=== PATIENT | female | born 1990 | race Caucasian/White ===

== ENCOUNTER 2019-09-22 10:54 | Emergency (ER) | payer SELFPAY ==
[2019-09-22 10:58] VITALS: BP 114/78; PULSE 102; RESP 18; TEMP 36.7; O2SAT 98; BMI 25.8
--- NOTE | 2019-09-22 11:18 | ED_ITS ---
Entered by Ene Yañez, acting as scribe for Da Guthrie DO Sep 22, 2019 10:54 HPI - General Adult General: Chief complaint: General Medical Stated complaint: Swollen throat Time Seen by Provider: 09/22/19 11:18 Source: patient Mode of arrival: ambulatory Limitations: no limitations History of Present Illness: HPI narrative: 29 yo Female presents to ED with complaint of swollen lymph nodes on the left side of her neck. Pt states that it started swelling last night while she was in the ED with her daughter. Pt states that her throat, tongue and everything hurts on the left side. MD complaint: Pain and swelling on left side of her neck Onset (ago): day(s) (1) Location: face and neck Radiation: non-radiation Severity scale (1-10): 10 Quality: constant Pain Consistency: constant Relieving factors: none Exacerbating factors: none Associated symptoms: Deny chest pain, cough, dyspnea, fevers/chills, malaise, nausea, rash or vomiting Review of Systems General: Reports: 10 or more systems reviewed and unremarkable except in HPI and below Const: Denies: malaise ENMT: Reports: throat pain, painful swallowing, mouth pain and ear pain; Denies: nasal discharge or nasal congestion Card: Denies: chest pain Resp: Denies: shortness of breath GI: Denies: nausea or vomiting : Denies: flank pain, difficulty urinating, painful urination, urinary frequency or urinary urgency Skin/Breast: Denies: rash PFSH ED PFSH: Statuses (acute, chronic, etc) shown below reflect problem list status as previously entered and may not be historically accurate Medical History Anemia (Acute) Depression (Acute) Migraine headache (Acute) Surgical History History of dilatation and curettage (Acute) Social History Smoking and tobacco status: current every day smoker Physical Exam Const: COMMON NORMALS: no apparent distress GENERAL APPEARANCE: cooperative and comfortable ORIENTATION/CONSCIOUSNESS: Yes awake, Yes oriented to person, Yes oriented to place and Yes oriented to time HENMT: COMMON NORMALS: normocephalic, head/scalp atraumatic, hearing grossly normal bilaterally, external ears normal, EAC's normal, TM's normal bilaterally, nasal mucous membranes and turbinates normal, moist oral mucous membranes and oropharynx normal HEAD & SCALP: normocephalic and atraumatic NOSE: nasal mucous membranes and turbinates normal EXTERNAL EAR: Yes external ears normal EXTERNAL AUDITORY CANAL: EAC's normal TYMPANIC MEMBRANE: TM's normal bilaterally THROAT: posterior oropharynx abnormal (Bilateral) erythema and exudates Eye: COMMON NORMALS: PERRL, EOMs intact bilaterally, conjunctivae normal and no scleral icterus CONJUNCTIVA: Yes conjunctivae normal PUPIL: Yes PERRL Neck/C-Spine: COMMON NORMALS: full ROM, no lymphadenopathy, supple and no JVD Lymph: LYMPHATIC: no lymphadenopathy noted and no lymphedema noted Resp: COMMON NORMALS: normal respiratory effort, no retractions, no use of accessory muscles and clear to auscultation bilaterally AUSCULTATION: clear to auscultation bilaterally Cardio: COMMON NORMALS: no JVD, regular rate, regular rhythm and no murmurs RATE: regular rate RHYTHM: regular rhythm Extremity: COMMON NORMALS: normal to inspection, normal capillary refill, no clubbing, cyanosis or edema, no calf tenderness and no pedal edema Neuro: SENSORIUM/ORIENTATION: Yes oriented to person, Yes oriented to place and Yes oriented to time Skin: COMMON NORMALS: no rashes or lesions noted GENERAL SKIN EXAM: no rashes or lesions noted Course Vital Signs: Vital signs: Vital Signs Temperature 98.1 F 09/22/19 10:58 Pulse Rate 78 09/22/19 13:09 Respiratory Rate 18 09/22/19 13:09 Blood Pressure 121/80 09/22/19 13:09 Pulse Oximetry 97 09/22/19 13:09 [facility] - General Adult Lab Data: Labs: Lab Results 09/22/19 Range/Units 11:31 Group A Strep Rapi d Negative (Negative) Discharge Plan Discharge Patient Disposition: Home, Self-Care Clinical Impression: Pharyngitis Qualifiers: Pharyngitis/tonsillitis etiology: unspecified etiology Qualified Code(s): J02.9 - Acute pharyngitis, unspecified Condition: Stable Prescriptions: New clindamycin HCl 300 mg capsule 300 mg PO QID 7 Days Qty: 28 RF: 0 prednisone 5 mg tablets,dose pack See Rx Instructions .ROUTE .COMPLEX Qty: 21 RF: 0 Discharge Orders: Discharge Order (Routine); Ordered 09/22/19 Ordered By: Da Guthrie Referrals: Raz De La Cruz FNP [Primary Care Provider] - Discharge Diet: Advance as tolerated Discharge Activity: Increase activity as tolerated Discharge Date/Time: 09/22/19 13:10 Coding Level of Care Code ED Skein Yard Drier for Chg Fwd Exam Problem Focused The documentation recorded by the Otilio wells Carmen, accurately reflects the service I personally performed and the decisions made by Cleveland castillo Curtis L, DO Sep 22, 2019 10:54
--- NOTE | 2019-09-22 12:06 | PC.NURSE ---
Patient states she has a dental abscess on same side for year now. Throat only sore when swallowing. Pain primarily on side of neck. Palpated swollen lymph nodes on left lateral neck.
[2019-09-22 12:22] LABS: Rapid Strep A Test Negative (Negative)
[2019-09-22 13:09] VITALS: BP 121/80; PULSE 78; RESP 18; O2SAT 97
== END 2019-09-22 13:10 | disposition home or self-care (01) ==
PROVIDERS: Emergency Provider Family Medicine; Family Provider Registered Nurse; PCP Registered Nurse
DX: J02.9 Acute pharyngitis, unspecified (principal); F17.210 Nicotine dependence, cigarettes, uncomplicated
CPT/HCPCS: 87081; 87880; 96372; 99281; 99283; J2930

== ENCOUNTER → 2020-08-22 15:30 | Outpatient (BNVA) | payer SELFPAY | PROVIDERS: Family Provider Registered Nurse; PCP Registered Nurse; Visit Provider Registered Nurse | DX: J43.9 Emphysema, unspecified (principal); N99.89 Other postprocedural complications and disorders of genitourinary system; M79.89 Other specified soft tissue disorders; F17.210 Nicotine dependence, cigarettes, uncomplicated | CPT/HCPCS: 80053; 80307; 81000; 85025 ==

== ENCOUNTER → 2021-05-11 09:29 | Outpatient (BNVA) | payer SELFPAY | PROVIDERS: Family Provider Registered Nurse; PCP Registered Nurse; Visit Provider Registered Nurse | DX: F41.8 Other specified anxiety disorders (principal); J01.40 Acute pansinusitis, unspecified | CPT/HCPCS: 80307 ==

== ENCOUNTER 2022-02-06 12:29 | Outpatient (CLI) | payer BC, MEDICAID, SELFPAY ==
--- NOTE | 2022-02-06 | US_ITS ---
WS: [id number] OB ultrasound, 02/06/2022 Clinical Data: MULTIGRAVIDA IN SECOND TRIMESTER Comparison: None. Findings: There is a single intrauterine in a transverse lie. The placenta is posterior and grade 0. There is a normal amount of amnionic fluid. The heart rate is 148 beats per minute. Measurements of growth and development: BPD: 4.8 cm 20 weeks 3 days HC: 17.5 cm 20 weeks 2 days AC: 15.2 cm 20 weeks 3 days FL: 3.6 cm 21 weeks 3 days The estimated weight is 381 g or approximately 13 ounces. The estimated gestational age is 20 weeks 5 days with an WEST of approximately 06/21/2022. anatomy show a normal stomach, kidneys, bladder, cord insertion, three-vessel cord, entire spin e, four-chamber heart, lateral cerebral ventricles, cerebellum and cisterna magna. US/US OB >= 14 weeks fetus [id number] Impression: 1. Single intrauterine in a transverse lie. 2. Estimated gestational age 20 weeks 5 days with an WEST of 06/21/2022. 3. heart rate 148 beats per minute.
== END 2022-02-06 12:30 | disposition home or self-care (01) ==
LOC: RADOUTREAD 12:34
PROVIDERS: PCP Registered Nurse; Visit Provider Family Medicine
DX: Z34.82 Encounter for supervision of other normal pregnancy, second trimester (principal); Z3A.20 20 weeks gestation of pregnancy
CPT/HCPCS: 76805

== ENCOUNTER → 2022-05-11 09:15 | Outpatient (BNVA) | payer BC, MEDICAID, SELFPAY | PROVIDERS: PCP Registered Nurse; Visit Provider Registered Nurse | DX: Z20.822 Contact with and (suspected) exposure to COVID-19 (principal); K05.6 Periodontal disease, unspecified; K06.9 Disorder of gingiva and edentulous alveolar ridge, unspecified | CPT/HCPCS: 87426 ==

== ENCOUNTER 2022-05-22 18:50 | Outpatient (CLI) | payer BC, MEDICAID, SELFPAY ==
[2022-05-22 19:09] VITALS: BP 127/71; PULSE 75
[2022-05-22 19:22] VITALS: TEMP 36.3
[2022-05-22 19:25] VITALS: BMI 32.4
[2022-05-22 20:18] LABS: Specific Gravity, Urine 1.015 (1.005-1.030); Urine Appearance Clear (CLEAR); Urine Color Yellow (Yellow); pH Urine 7 (5-7)
[2022-05-22 20:19] LABS: Bilirubin Urine Neg (Negative); Blood Urine 2+ (Negative); Glucose Urine UA Norm (Normal); Ketones Urine Negative (Negative); Leukocyte Esterase Urine Negative (Negative); Nitrate Urine Negative (Negative); Protein Urine Neg (Negative); Urobilinogen Urine Norm (Negative)
[2022-05-22 20:20] LABS: Add Urine Culture? No; Amorphous Sediment Urine 3+ /hpf; WBC Urine 0-4 /hpf (0-5)
[2022-05-22 22:22] VITALS: TEMP 36.4
[2022-05-22 22:35] VITALS: TEMP 36.3
[2022-05-22 22:36] VITALS: BP 133/60; PULSE 75
[2022-05-22 22:40] VITALS: BP 133/60; PULSE 75; RESP 16; TEMP 36.4
== END 2022-05-22 22:40 | disposition home or self-care (01) ==
LOC: OPOB 18:54 → OBGYN 18:58
PROVIDERS: PCP Registered Nurse; Visit Provider Family Medicine
DX: O47.03 False labor before 37 completed weeks of gestation, third trimester (principal); Z3A.36 36 weeks gestation of pregnancy
CPT/HCPCS: 59025; 81001; 99211

== ENCOUNTER → 2022-05-24 13:32 | Outpatient (BNVA) | payer BC, MEDICAID, SELFPAY | PROVIDERS: PCP Registered Nurse; Visit Provider Nurse Practitioner Family | DX: Z20.822 Contact with and (suspected) exposure to COVID-19 (principal); J06.9 Acute upper respiratory infection, unspecified | CPT/HCPCS: 87426 ==

== ENCOUNTER 2022-06-03 09:40 | Outpatient (CLI) | payer BC, MEDICAID, SELFPAY ==
[2022-06-03] VITALS (9 sets, daily range): BP systolic 117–127; BP diastolic 64–75; PULSE 80–88; TEMP 36.1; BMI 32.2
== END 2022-06-03 12:18 | disposition home or self-care (01) ==
LOC: OPOB 09:47 → OBGYN 09:48
PROVIDERS: PCP Registered Nurse; Visit Provider Family Medicine
DX: O36.8190 Decreased fetal movements, unspecified trimester, not applicable or unspecified (principal); O46.90 Antepartum hemorrhage, unspecified, unspecified trimester; Z3A.00 Weeks of gestation of pregnancy not specified; R10.9 Unspecified abdominal pain
CPT/HCPCS: 59025; 99211

== ENCOUNTER 2022-06-05 08:51 | Inpatient (IN) | payer BC, MEDICAID, SELFPAY ==
[2022-06-05] VITALS (81 sets, daily range): BP systolic 93–161; BP diastolic 50–75; PULSE 64–103; RESP 16–18; TEMP 35.9–37.1; O2SAT 82–98; BMI 32.5
[2022-06-05] MEDS: lactated ringers 1,000 ML 999 ML IV ×2 (08:29→09:42)
[2022-06-05] MEDS: fentaNYL 50 mcg/mL INJ 2mL IVP (08:39)
[2022-06-05 08:46] LABS: Basophils # 0.1 10^3/uL (0.0-0.1); Basophils % 0.2 %; Eosinophils % 0.2 %; Hematocrit 39.5 % (37.0-47.0); Hemoglobin 13.7 g/dL (11.5-15.3); Lymphocytes # 1.9 10^3/uL (0.8-4.8); Lymphocytes % 8.2 %; Mean Corpuscular HGB Conc 34.7 g/dL (30.0-36.0); Mean Corpuscular Hemoglobin 32.8 pg (28.0-34.0); Mean Corpuscular Volume 94.5 fl (81-99); Mean Platelet Volume 11.5 fL (7.4-10.4); Monocytes # 1.5 10^3/uL (0.2-0.9); Monocytes % 6.4 %; Neutrophils # 19.76 10^3/uL (1.8-7.7); Neutrophils % 84.1 %; Nucleated Red Blood Cells % 0 %; Platelet Count 220 10^3/cmm (130-400); Red Blood Count 4.18 10^6/uL (4.1-5.3); Red Cell Distribution Width 12.7 % (12.1-15.1); White Blood Count 23.5 10^3/uL (4.0-10.0)
--- NOTE | 2022-06-05 10:04 | ANES.PREANE2 ---
Pre-Anesthetic Assessment Height/Weight: Height 1.7 m Weight 94.347 kg Temp Pulse Resp BP Pulse Ox O2 Del Method 97.5 F L 86 18 133/62 97 06/05/22 10:02 06/05/22 10:01 06/05/22 08:39 06/05/22 10:00 06/05/22 10:01 06/05/22 08:18 Preop Diagnosis: Expected Labor epidural Familial anesthetic complications: None Was Beta Brian taken within 24 hours: N/A Was Clonidine taken within 24 hours: N/A Last intake: 799 Last Intake: 08:00 Social Tobacco Exam alert, oriented x 3, clear to auscultation bilaterally and regular rate & rhythm Airway Submandibular: within normal limits Cervical ROM: within normal limits Mallampati: Class II Dentition: chipped Comments: Comments: Poor dentition History/ROS No significant history except as noted Pulmonary Chronic Obstructive Pulmonary Disease CV/HEM Anemia None reported Hepatic None reported GI None reported Metabolic None reported Musc/skel Scoliosis (Pt reported mild scoliosis) Neuropsych Depression Headaches Anesthetic Plan ASA status: 3 Anesthesia: Anesthesia Evaluation and Regional (specify below) (Labor epidural) Risk of > 500 ml blood loss (7ml/kg in children): No Medications/Allergies Home Medications Medication Instructions Recorded Confirmed Last Taken Type albuterol sulfate 90 mcg/actuation 2 puff inhalation Q6H PRN 08/22/20 05/24/22 05/21/22 20:00 Rx aerosol inhaler (ProAir HFA) shortness of breath or wheezing #1 ea [place] 1 tab PO PRN PRN Pain 05/22/22 05/24/22 05/21/22 History Allergies Allergy/AdvReac Type Severity Reaction Status Date / Time latex Allergy Mild Unknown Verified 06/05/22 07:32 citalopram [From Celexa] Allergy ALGY-Rash Verified 06/03/22 11:28 sertraline [From Zoloft] Allergy ALGY-Rash Verified 06/03/22 11:28 Current Medications Generic Name Dose Route Start Last Admin Trade Name Freq PRN Reason Stop Dose Admin Fentanyl 25 - 100 mcg 06/05/22 08:10 06/05/22 08:39 Fentanyl 50 Mcg/Ml Inj 2ml IVP 25 mcg Q1H PRN Administration SEVERE PAIN Ropivacaine 200 mg in 100 mls @ 13 mls/hr 06/05/22 08:15 06/05/22 09:42 Naropin Premix EPIDURAL 13 mls/hr .Q7H42M ERNA Administration Lactated Ringer's 1,000 mls @ 999 mls/hr 06/05/22 08:11 06/05/22 09:42 Lactated Ringers IV 999 mls/hr .Q1H1M PRN Administration See label comments PFSH Anesthesia Medical History Anemia Cigarette smoker two packs a day or less Depression Emphysema of lung Migraine headache Surgical History History of dilatation and curettage Social History Smoking and tobacco status: current every day smoker Female Reproductive History : 7 Data Anesthesia : 06/05/22 08:00 Short CBC 06/05/22 Range/Units 08:00 WBC 23.5 H (4.0-10.0) 10^3/uL Hgb 13.7 (11.5-15.3) g/dL Hct 39.5 (37.0-47.0) % MCV 94.5 (81-99) fl Plt Count 220 (130-400) 10^3/cmm Neut % (Auto) 84.1 % Neut # (Auto) 19.76 H (1.8-7.7) 10^3/uL Cardiac Studies: No Data to Display Anesthesia Procedures Date of Procedure 06/05/22 Epidural Time Out Performed: Yes Consents Signed: Procedure Consent Consent: from patient, risks and benefits reviewed and patient agrees to proceed Lumbar Level: L4-L5 Epidural position: sitting Epidural procedure: sterile prep of area, 1% lidocaine to numb the area, 18 g needle, negative for paresthesia passed, neg for paresthesia, test dose given, 1.5% xylocaine 1:200k epi (2% xylocaine and 1:200k epi), placed PCEA, no systemic response, sterile dressing applied, L.U.D. no apparent complications and 0.2% Ropiavacaine @ mls/hr (13ml/hr) Additional Comments: VITALY 7cm
[2022-06-05] MEDS: ondansetron 2 mg/ML SDV 2 mL 4 MG IVP (11:44)
[2022-06-05] MEDS: dextrose 5%-lactated ringers 1,000 ML 125 ML IV (11:45)
--- NOTE | 2022-06-05 14:36 | PC.NURSE ---
blood pressure taken at 1249 read 161/63, cuff had slipped down on pt elbow and was not an accurate reading. cuff adjusted and retaken, reading 122/56.
[2022-06-05] MEDS: oxytocin 30 UNIT/500 ML BAG 600 UNIT IV (16:35)
--- NOTE | 2022-06-05 16:49 | PM.OPHPUD ---
Labor & Delivery H&P Update Date of Procedure: June 05, 2022 Date H&P Performed: 05/31/22 Changes to previous documentation: The patient is 4 cm dilated and having contractions every 4 minutes Admission Diagnosis: 32-year-old 7 para 4 at 38 weeks admitted gestational age presenting in active labor Planned procedure: Spontaneous vaginal delivery Other information: The patient is a 32-year-old female who has been to the hospital multiple times in the last several days with contractions, abdominal pain, and fear to rupture membranes. Her has been remarkable for having hepatitis C. Otherwise her labs have been unremarkable. She is HPV positive. Her blood type is a positive. She is antibody negative. Her GBS status is negative. She was diagnosed with COVID early last week. She continues to have a cough. Related Problem List Diagnoses (1) 38 weeks gestation of : (2) Hepatitis C test positive: A&P Assessment and plan (1) 38 weeks gestation of : The patient presented in active labor. An epidural was placed. Status: Acute (2) Hepatitis C test positive: No intervention while in the hospital. Status: Acute
[2022-06-05] MEDS: acetaminophen 325 mg Tablet 650 MG PO (17:02)
--- NOTE | 2022-06-05 17:16 | P.PCNOB_ITS ---
Delivery Note: Date of delivery: June 05, 2022 Pre-delivery diagnoses: 32-year-old 7 para 4 at 38 weeks estimated gestational age presenting to the hospital in active labor Post-delivery diagnoses: Status post spontaneous vaginal delivery Procedure: Spontaneous vaginal delivery Delivering Physician: Pedro Carmona Estimated blood loss (mL): 50 Pre-Delivery Course: The patient presented to the hospital in active labor. A n epidural was placed. An amniotomy was performed. The patient progressed to complete without difficulty. Delivery: DELIVERY: The patient progressed to complete without difficulty. She delivered a female with a weight of 6 pounds 5 ounces with Apgars of 9, 10. The baby was delivered from the ARI position and placed on the mother's abdomen. The cord was then clamped and cut. There was a nuchal cord x1 which was easily reduced prior just after delivering the head.. There was no meconium. The placenta and 3 vessel cord were delivered intact shortly thereafter. The perineum and vaginal vault were carefully examined. No lacerations were noted. Both the mother and the baby were in stable condition. Post-Delivery Status: Good A&P Assessment and plan (1) Spontaneous vaginal delivery: I anticipate routine care. (2) Hepatitis C test positive: (3) 38 weeks gestation of : Coding Level of Care Code Acute Lawn Care Specialist for Chg Fwd Diagnoses Spontaneous vaginal delivery O80 Hepatitis C test positive B19.20 38 weeks gestation of Z3A.38
[2022-06-05] MEDS: docusate sodium 100 mg Capsule PO (18:06)
[2022-06-05] MEDS: HYDROcodone-acetaminophen 5-325 mg Tablet PO (18:06)
--- NOTE | 2022-06-05 18:30 | PC.NURSE ---
pt up to bathroom without difficulty. pt not able to void. ling care performed by pt. pad and gown changed. pt ambulated back to bed, instructed to call for assistance next time she gets up to bathroom.
[2022-06-05] MEDS: ibuprofen 800 mg tablet PO (20:57)
[2022-06-06] VITALS (7 sets, daily range): BP systolic 97–130; BP diastolic 52–80; PULSE 50–73; RESP 15–18; TEMP 36–36.8
[2022-06-06] MEDS: HYDROcodone-acetaminophen 5-325 mg Tablet PO ×3 (00:23→14:01)
[2022-06-06 05:45] LABS: Hematocrit 33.7 % (37.0-47.0); Hemoglobin 11.5 g/dL (11.5-15.3); Mean Corpuscular HGB Conc 34.1 g/dL (30.0-36.0); Mean Corpuscular Hemoglobin 32.6 pg (28.0-34.0); Mean Corpuscular Volume 95.5 fl (81-99); Mean Platelet Volume 11.1 fL (7.4-10.4); Platelet Count 178 10^3/cmm (130-400); Red Blood Count 3.53 10^6/uL (4.1-5.3); Red Cell Distribution Width 12.9 % (12.1-15.1)
--- NOTE | 2022-06-06 06:46 | PM.OBGYDC ---
Discharge Providers FILEMAKER DEVELOPER Date of Admission: 06/05/22 16:12 Date of Discharge: 06/06/22 Attending Provider at Admission: Pedro Carmona MD Attending Provider at Discharge: Pedro Carmona MD Primary Care Provider: KENA Vang Diagnoses at Discharge Discharge Diagnosis (1) Spontaneous vaginal delivery: Status: Acute (2) Hepatitis C test positive: Status: Acute (3) 38 weeks gestation of : Status: Acute Reason for Visit Reason for Visit: possible srom, contractions Hospital Course Hospital Course The patient presented to the hospital in active labor. An epidural was placed. An amniotomy was performed. She progressed to complete and had an unremarkable delivery of a healthy-appearing term infant. Her course has been relatively unremarkable. Her bleeding has been within normal limits. Her pain has been reasonably well controlled. She has complained of a fair amount of cramping. Otherwise there have been no concerns. Information Peripartum Data: Infant Delivery Method: Vaginal Physical Exam Narrative: The patient is alert. She appears comfortable. Her heart has a regular rate and rhythm with no murmurs appreciated. Lungs are clear to auscultation bilaterally. Her fundus is firm and below the umbilicus. Urinary Catheter Management: Dailey Latex Free: Cath Placed During This Visit: yes Urinary Catheter Date of Insertion: 06/05/22 Urinary Catheter Time of Insertion: 10:28 Discharge Data Studies Completed and Pending Laboratory Results WBC 16.0 10^3/uL (4.0-10.0) H 06/06/22 05:35 RBC 3.53 10^6/uL (4.1-5.3) L 06/06/22 05:35 Hgb 11.5 g/dL (11.5-15.3) 06/06/22 05:35 Hct 33.7 % (37.0-47.0) L 06/06/22 05:35 MCV 95.5 fl (81-99) 06/06/22 05:35 MCH 32.6 pg (28.0-34.0) 06/06/22 05:35 MCHC 34.1 g/dL (30.0-36.0) 06/06/22 05:35 RDW 12.9 % (12.1-15.1) 06/06/22 05:35 Plt Count 178 10^3/cmm (130-400) 06/06/22 05:35 MPV 11.1 fL (7.4-10.4) H 06/06/22 05:35 Neut % (Auto) 84.1 % 06/05/22 08:00 Lymph % (Auto) 8.2 % 06/05/22 08:00 [place] % (Auto) 6.4 % 06/05/22 08:00 Eos % (Auto) 0.2 % 06/05/22 08:00 Baso % (Auto) 0.2 % 06/05/22 08:00 Neut # (Auto) 19.76 10^3/uL (1.8-7.7) H 06/05/22 08:00 Lymph # (Auto) 1.9 10^3/uL (0.8-4.8) 06/05/22 08:00 [place] # (Auto) 1.5 10^3/uL (0.2-0.9) H 06/05/22 08:00 Eos # (Auto) 0.0 10^3/uL (0.0-0.8) 06/05/22 08:00 Baso # (Auto) 0.1 10^3/uL (0.0-0.1) 06/05/22 08:00 Nucleated RBC % (auto) 0 % 06/05/22 08:00 Nucleated RBCs # 0.0 /100WBC 06/05/22 08:00 Vitals Last Vital Signs Temp 98.7 F 06/05/22 18:42 Pulse 50 L 06/06/22 05:32 Resp 16 06/05/22 18:42 BP 130/73 06/06/22 05:32 Pulse Ox 98 06/05/22 10:31 O2 Del Method 06/05/22 08:18 Discharge Plan Discharge Patient Disposition: Home Condition: Stable Prescriptions: New ibuprofen 800 mg Tablet 800 mg PO TID Qty: 45 0RF Continued albuterol sulfate [ProAir HFA] 90 mcg/actuation HFA aerosol inhaler 2 puff inhalation Q6H PRN (Reason: shortness of breath or wheezing) Qty: 1 0RF Discontinued [place] 1 tab PO PRN PRN (Reason: Pain) Discharge Orders: Discharge Order (Routine); Ordered 06/06/22 Ordered By: Pedro Carmona Referrals: Pedro Carmona MD [Physician] - 6 Weeks Discharge Diet: Usual diet Discharge Activity: Limit activity as instructed Patient Instructions: Opioid Safety Discharge Attestations FILEMAKER DEVELOPER Time Spent in Discharge Care*: less than 30 min Coding Level of Care Code Acute Boomboat Operator for Chg Fwd Diagnoses Spontaneous vaginal delivery O80 Hepatitis C test positive B19.20 38 weeks gestation of Z3A.38
[2022-06-06] MEDS: ibuprofen 800 mg tablet PO ×2 (07:27→14:02)
[2022-06-06] MEDS: prenatal vitamin Capsule 1 CAP PO (07:28)
--- NOTE | 2022-06-06 10:07 | ANE.PACU2 ---
Inpatient post-anesthesia follow up: Airway intact: Yes Vital signs: Temperature 96.8 F Pulse Rate 67 Respiratory Rate 16 Blood Pressure 115/53 Pulse Oximetry 98 Oxygen Delivery Me thod Room Air Oxygen Flow Rate Fraction of Inspir ed Oxygen Hydration adequate: Yes Nausea and vomiting: No Pain level: 2 Mental status: Baseline
== END 2022-06-06 18:00 | disposition home or self-care (01) | DRG 806 ==
LOC: OPOB 14:28 → OBGYN 14:28
PROVIDERS: Admitting Provider Family Medicine; PCP Registered Nurse; Visit Provider Family Medicine
DX: O99.334 Smoking (tobacco) complicating childbirth (principal); O98.42 Viral hepatitis complicating childbirth; Z37.0 Single live birth; B19.20 Unspecified viral hepatitis C without hepatic coma; O69.2XX0 Labor and delivery complicated by other cord entanglement, with compression, not applicable or unspecified; Z3A.38 38 weeks gestation of pregnancy; Z88.8 Allergy status to other drugs, medicaments and biological substances; Z91.040 Latex allergy status; O75.89 Other specified complications of labor and delivery; J45.909 Unspecified asthma, uncomplicated
CPT/HCPCS: 12345; 36415; 51702; 59409; 83986; 85025; 85027; G0378; J2405; J2795; J3010

== ENCOUNTER 2022-06-14 06:15 | Emergency (ER) | payer BC, MEDICAID, SELFPAY ==
[2022-06-14 06:20] VITALS: BP 182/96; PULSE 63; RESP 16; TEMP 36.4; O2SAT 96; BMI 28.1
[2022-06-14 06:24] VITALS: PULSE 63; RESP 18; O2SAT 96
--- NOTE | 2022-06-14 06:25 | W.ED.DENTAL ---
HPI - Dental/Oral General: Chief complaint: Dental/Oral Stated complaint: Right Side face swollen Time Seen by Provider: 06/14/22 06:17 Source: patient Mode of arrival: ambulatory History of Present Illness: 32-year-old female presents emergency room complaining of right tooth pain emanating from the jaw. No difficulty swallowing or speaking. Has been using ibuprofen although still has some mild low back pain recently had an epidural for vaginal delivery denies headache. MD Complaint: tooth pain Onset (ago): day(s) Duration: constant Severity: moderate Relieving factors: nothing Exacerbating factors: nothing Context: history of dental caries Associated symptoms: Reports gum swelling; Denies ear or mastoid pain, fever(s), odynophagia, sore throat or tongue swelling Treatment prior to arrival: other (OTC NSAIDs) Review of Systems Const: Denies: fever(s) or chills ENMT: Reports: mouth pain and dental pain; Denies: throat pain, uvular edema, odynophagia, hoarseness or ear or mastoid pain Card: Denies: chest pain, edema, dyspnea on exertion or orthopnea Resp: Denies: dyspnea, productive cough or non-productive cough GI: Denies: abdominal pain, nausea, vomiting, hematemesis, coffee ground emesis, diarrhea, constipation, bloating, hematochezia or melena : Denies: flank pain, difficulty voiding, dysuria, urinary frequency or urinary urgency Musc: Reports: back pain; Denies: extremity pain Skin/Breast: Denies: rash or pruritus All/Imm: Denies: tongue swelling PFSH ED PFSH: Medical History Anemia Cigarette smoker two packs a day or less Depression Emphysema of lung Migraine headache Surgical History History of dilatation and curettage Social History Smoking and tobacco status: current every day smoker Physical Exam Const: COMMON NORMALS: no acute distress GENERAL APPEARANCE: cooperative and comfortable ORIENTATION/CONSCIOUSNESS: Yes awake, Yes oriented to person, Yes oriented to place and Yes oriented to time HENMT: COMMON NORMALS: normocephalic, atraumatic, hearing grossly normal bilaterally, external ears normal, EAC's normal, TM's normal bilaterally, Normal nasal mucous membranes and turbinates present, moist oral mucous membranes and oropharynx normal HEAD & SCALP: normocephalic and atraumatic NOSE: Normal nasal mucous membranes and turbinates present EXTERNAL EAR: Yes external ears normal EXTERNAL AUDITORY CANAL: EAC's normal TYMPANIC MEMBRANE: TM's normal bilaterally THROAT: no uvular edema OTHER: Dental caries mild swelling of the gumline on the right mandible Neck/C-Spine: COMMON NORMALS: full ROM, no lymphadenopathy and supple Lymph: LYMPHATIC: no lymphadenopathy noted and no lymphedema noted Resp: COMMON NORMALS: normal respiratory effort, No retractions, No use of accessory muscles and clear to auscultation bilaterally AUSCULTATION: clear to auscultation bilaterally Cardio: COMMON NORMALS: regular rate, regular rhythm and No murmurs present (Cardio) RATE: regular rate RHYTHM: regular rhythm Extremity: COMMON NORMALS: normal to inspection, capillary refill normal, no clubbing, cyanosis or edema, no calf tenderness and no pedal edema Neuro: SENSORIUM/ORIENTATION: Yes oriented to person, Yes oriented to place and Yes oriented to time Skin: COMMON NORMALS: no rashes or lesions noted GENERAL SKIN EXAM: no rashes or lesions noted Course Vital Signs: Vital signs: Vital Signs Temperature 97.5 F L 06/14/22 06:20 Pulse Rate 63 06/14/22 06:33 Respiratory Rate 18 06/14/22 06:33 Blood Pressure 140/97 06/14/22 06:33 Pulse Oximetry 96 06/14/22 06:33 Oxygen Delivery Me thod 06/14/22 06:24 MDM - Dental/Oral Medical Decision Making Patient started on Augmentin 875 twice daily for 10 days also given diclofenac to use as needed and hydrocodone. Recommend follow-up with dentist as soon as able. Medical Records I reviewed the patient's medical records. Discharge Plan Discharge Patient Disposition: Home Clinical Impression: Dental abscess, Dental caries Condition: Stable Prescriptions: New diclofenac sodium 75 mg tablet,delayed release (DR/EC) 75 mg PO Q12H PRN (Reason: pain) Qty: 20 0RF Discontinued ibuprofen 800 mg Tablet 800 mg PO TID Qty: 45 0RF No Action albuterol sulfate [ProAir HFA] 90 mcg/actuation HFA aerosol inhaler 2 puff inhalation Q6H PRN (Reason: shortness of breath or wheezing) Qty: 1 0RF bupropion HCl [Wellbutrin SR] 100 mg tablet sustained-release 12 hr 100 mg PO QAM 30 Days Qty: 30 0RF nicotine 21-14-7 mg/24 hr patch, TD daily, sequential See Rx Instructions transdermal .COMPLEX Qty: 56 0RF Rx Instructions: apply 1-21 mg NICOTINE PATCH daily for 28 days; follow with 1-14 mg PATCH daily for 14 days, then 1-7mg PATCH daily for 14 days transdermal Discharge Orders: Discharge ED (Routine); Ordered 06/14/22 Ordered By: Da Guthrie Referrals: Raz De La Cruz FNP [Primary Care Provider] - Discharge Diet: Soft Mechanical Discharge Activity: Increase activity as tolerated Patient Instructions: Opioid Safety, Pain Management Activity Restrictions/Additional Instructions: Follow-up with dentist as soon as you are able. Coding Level of Care Code ED Millinery Teacher for Johnnie Condon
[2022-06-14 06:33] VITALS: BP 140/97; PULSE 63; RESP 18; O2SAT 96
[2022-06-14] MEDS: ketorolac 30 mg/mL INJ 60 MG IM (06:43)
[2022-06-14] MEDS: HYDROcodone-acetaminophen 5-325 mg Tablet 1 TAB PO (06:43)
== END 2022-06-14 06:44 | disposition home or self-care (01) ==
PROVIDERS: Emergency Provider Family Medicine; PCP Registered Nurse
DX: K04.7 Periapical abscess without sinus (principal); K02.9 Dental caries, unspecified; J43.9 Emphysema, unspecified; F17.210 Nicotine dependence, cigarettes, uncomplicated
CPT/HCPCS: 96372; 99284; J1885

== ENCOUNTER 2024-06-26 19:12 | Inpatient (IN) | payer SELFPAY ==
[2024-06-26] VITALS (27 sets, daily range): BP systolic 99–120; BP diastolic 50–74; PULSE 51–83; RESP 3–29; TEMP 36.6–37.2; O2SAT 96–99; BMI 23.5; BMI 25.7
--- NOTE | 2024-06-26 19:19 | XRR_ITS ---
PROCEDURE INFORMATION: Exam: XR Chest Exam date and time: 06/26/2024 7:50 PM Age: 34 years old Clinical indication: Other: Drug overdose; Patient HX: EMS arrival for acetaminophen overdose. History of emphysema. TECHNIQUE: Imaging protocol: Radiologic exam of the chest. Views: 1 view. COMPARISON: No relevant prior studies available. FINDINGS: Lungs: Clear, symmetrically inflated lungs. Pleural spaces: No pleural effusion. No pneumothorax. Heart/Mediastinum: Cardiac silhouette is normal in size for technique. Bones/joints: Age appropriate. XR/XR chest 1V portable [id number] IMPRESSION: No acute cardiopulmonary abnormality.
--- NOTE | 2024-06-26 19:23 | ECG_ITS ---
[employer] Test Date: 2024-06-26 Pat Name: Pina Almonte Department: Room: Gender: Female Certified Executive Chef: : 1990 Requested By: Alirio Wagner Order Number: [id number] Alvin MD: KODAK RAI Measurements Intervals [place] Rate: 52 P: 69 TN: 141 QRS: 84 QRSD: 97 T: 73 QT: 441 QTc: 410 Interpretive Statements SINUS BRADYCARDIA POSSIBLE RIGHT VENTRICULAR CONDUCTION DELAY [RSR (QR) IN V1/V2] POSSIBLE ANTERIOR MYOCARDIAL INFARCTION , OF INDETERMINATE AGE [30 ms Q WAVE IN V3/V4, OR R < 0.2 mV IN V4] No previous ECG available for comparison Electronically Signed On 06-27-2024 18:08:39 CDT by KODAK RAI [email or web address]
--- NOTE | 2024-06-26 19:23 | W.ED.OVERDOS ---
HPI - Overdose General: Chief Complaint: Overdose Stated Complaint: OD Time Seen by Provider: 06/26/24 19:16 Source: patient and EMS Mode of arrival: EMS Limitations: no limitations History of Present Illness: Patient was transported to emergency department via EMS. Patient states that approximately 5 15-5 30 this evening she took a handful of Tylenol. They present with the patient a pill of acetaminophen 500 mg caplets which she still has a significant amount of pills left in the bottle. Estimation is somewhere around 25 to 35 pills. Patient states that she has not been feeling well she did saw her therapist today who scheduled to see her psychiatrist next week but felt overwhelmed by a lot of her emotional state and decided to take the Tylenol. She previously had a suicide attempt years ago. She denies any coingestions of any other substances to include street drugs alcohol etc. She is taking her usual prescribed medications today. She complains of nausea currently. Time: 17:20 Intent: suicide attempt Associated symptoms: depression Treatments Prior to Arrival: IV fluids Related Data Home Medications Medication Instructions Recorded Confirmed lisdexamfetamine 30 mg capsule 30 mg PO DAILY 07/03/23 07/03/23 (Vyvanse) cetirizine 10 mg capsule (Zyrtec) 10 mg PO DAILY PRN 04/09/24 04/09/24 famotidine 20 mg tablet (Pepcid) 20 mg PO DAILY 04/09/24 04/09/24 Previous Rx's Medication Instructions Recorded vilazodone 10 mg tablet (Viibryd) 10 mg PO DAILY 30 days #30 tabs 07/03/23 prednisone 20 mg tablet 20 mg PO DAILY 7 days #7 tabs 04/09/24 permethrin 5 % topical cream 1 applic topical Q14D 2 doses #60 04/10/24 (Elimite) grams Allergies Allergy/AdvReac Type Severity Reaction Status Date / Time latex Allergy Mild Unknown Verified 04/09/24 15:47 citalopram [From Celexa] Allergy ALGY-Rash Verified 04/09/24 15:47 sertraline [From Zoloft] Allergy ALGY-Rash Verified 04/09/24 15:47 Review of Systems Const: Denies: fever(s) or chills ENMT: Denies: throat pain, odynophagia, nasal congestion or nasal obstruction Card: Denies: chest pain, irregular heart rhythm, syncope or pre-syncope Resp: Denies: dyspnea, productive cough or non-productive cough GI: Reports: nausea; Denies: vomiting : Denies: flank pain, difficulty voiding or dysuria Musc: Denies: neck pain, back pain or extremity pain Skin/Breast: Denies: rash Neuro: Denies: numbness in extremities or weakness in extremities Psych: Reports: depression and suicidal ideation; Denies: visual hallucinations, auditory hallucinations or homicidal ideation PFSH ED PFSH: Medical History Psychiatric care Cigarette smoker two packs a day or less Emphysema of lung Depression Anemia Migraine headache Surgical History (Reviewed 06/26/24 @ 19: by Alirio Wagner DO) History of dilatation and curettage Social History (Reviewed 06/26/24 @ 19: by Alirio Wagner DO) Smoking and tobacco/nicotine status: current every day tobacco/nicotine user Alcohol intake: never Substance/Drug Use: never Adopted: No Caregiver/support person: No Lives independently: No Household members: significant other Current occupational status: employed Sexually active: Yes Do you think of yourself as: Lesbian/Donovan/Homosexual Current gender identity: Female Physical Exam Narrative: EXAM NARRATIVE: The patient is alert answers questions in a somewhat monotonous depressed affect and tone. Const: COMMON NORMALS: average body habitus and alert ORIENTATION/CONSCIOUSNESS: Yes awake, Yes oriented to person and Yes oriented to place HENMT: COMMON NORMALS: normocephalic, Normal nasal mucous membranes and turbinates present, moist oral mucous membranes and oropharynx normal HEAD & SCALP: normocephalic FACE & SINUS: normal facial exam NOSE: Normal nasal mucous membranes and turbinates present TEETH & GINGIVA: Yes caries and Yes poor dentition Eye: COMMON NORMALS: Equal, round and reactive pupils present, EOMs intact bilaterally and conjunctivae normal CONJUNCTIVA: Yes conjunctivae normal PUPIL: Yes Equal, round and reactive pupils present Neck/C-Spine: COMMON NORMALS: full ROM, no lymphadenopathy and No carotid bruits Chest: COMMONS NORMALS: normal inspection of the chest and normal palpation of entire chest wall Resp: COMMON NORMALS: normal respiratory effort, No use of accessory muscles and clear to auscultation bilaterally AUSCULTATION: clear to auscultation bilaterally Cardio: COMMON NORMALS: regular rate, regular rhythm, No murmurs present (Cardio) and Peripheral pulses 2+ throughout RATE: regular rate RHYTHM: regular rhythm PERIPHERAL PULSES: Peripheral pulses 2+ throughout GI: COMMON NORMALS: Normal to inspection, nondistended, normoactive bowel sounds present, Soft to palpation and non-tender PALPATION: Yes Soft to palpation : COMMON NORMALS: Yes no CVA tenderness BLADDER/KIDNEY EXAM: Yes no CVA tenderness Back/Pelvis: COMMON NORMALS: no CVA tenderness, thoracic and lumbar spine normal to inspection and no thoracic nor lumbar tenderness Extremity: COMMON NORMALS: normal to inspection, full ROM, capillary refill normal and no calf tenderness Neuro: COMMON NORMALS: moves all extremities, no focal motor deficits and no sensory deficits noted SENSORIUM/ORIENTATION: Yes alert, Yes oriented to person and Yes oriented to place CRANIAL NERVES: Yes CN normal except as noted Psych: COMMON NORMALS: Normal thought process present and cooperative ATTITUDE: Yes Withdrawn affect present ACTIVITY/MOTOR BEHAVIOR: Yes Avoids eye contact (attititude/behavior) SPEECH: Yes soft MOOD & AFFECT: Yes depressed mood, Yes tearful and Yes Flat affect present THOUGHT PROCESS: Normal thought process present THOUGHT CONTENT: Yes Suicidality present INSIGHT: Fair insight present (Psych) JUDGEMENT: Fair judgement present (Psych) Skin: COMMON NORMALS: no rashes or lesions noted, no wounds and turgor normal GENERAL SKIN EXAM: no rashes or lesions noted and turgor normal Course Reevaluation(s): Reevaluation #1: Patient's heart rate remained stable and remainder of her vital signs are stable she is receiving IV fluids and has nausea for control of symptoms. Her initial acetaminophen level is under an 87 mg percent which while not prompting treatment at this time gives pause that her 4-hour level will be elevated. We will wait on the 4-hour level before making a decision on to initiate NAC. Time: 20:29 Reevaluation #2: 4-hour acetaminophen level is 191+ which is greater than 150 mg percent treatment line will initiate NAC and plan on ICU admission Time: 21:42 Consultations: Consultation #1: Discussed with Dr. Spence attending hospitalist who will admit the patient to the ICU. Time: 22:20 Consultation #2: Discussed with Dr. Fitch attending psychiatrist to consult on the patient in the ICU. Time: 22:20 Vital Signs: Vital signs: Vital Signs Temperature 97.9 F 06/26/24 19:14 Pulse Rate 68 06/26/24 21:40 Respiratory Rate 21 H 06/26/24 21:40 Blood Pressure 105/50 06/26/24 21:40 Pulse Oximetry 96 06/26/24 21:40 Oxygen Delivery Me thod Room Air 06/26/24 19:59 MDM - Overdose Medical Decision Making This patient was transported from her home by EMS after they were notified that the patient had taken a substantial overdose on acetaminophen as noted in the HPI. The patient had been depressed and admitted to taking them intentionally and plan to harm herself. Initial workup focused on acetaminophen ingestion as well as other potential Co. ingestants. The initial random acetaminophen level is noted to be elevated but not valid for treatment initiation and a 4-hour level returned which was greater than 150 mg percent minimum for treatment using the nomogram. N-acetylcysteine will be initiated and the patient will be admitted to the ICU and will need psychiatric consultation as well. Her initial transaminases are normal, there is no evidence of other coingestants, and her cardiac rhythm and EKG remain reassuring. Differential Diagnosis Likely acetaminophen overdose Lab Data I reviewed the patient's lab results. 06/26/24 19:33 06/26/24 19:33 Radiology Impressions Chest X-Ray 06/26/24 19:19 IMPRESSION: No acute cardiopulmonary abnormality. Laboratory Results WBC 10.01 10^3/uL (3.29-11.43) 06/26/24 19:33 RBC 3.72 10^6/uL (3.85-5.65) L 06/26/24 19:33 Hgb 12.00 g/dL (11.27-16.99) 06/26/24 19:33 Hct 34.6 % (36-47) L 06/26/24 19:33 MCV 93.0 fl (85-98) 06/26/24 19:33 MCH 32.3 pg (27-33) 06/26/24 19:33 MCHC 34.7 g/dL (30-55) 06/26/24 19:33 RDW 12.8 % (12.1-15.1) 06/26/24 19:33 Plt Count 238 10^3/cmm (157-399) 06/26/24 19:33 MPV 10.3 fL (7.4-10.4) 06/26/24 19:33 Neut % (Auto) 56.9 % 06/26/24 19:33 Lymph % (Auto) 31.3 % 06/26/24 19:33 [place] % (Auto) 9.3 % 06/26/24 19:33 Eos % (Auto) 1.5 % 06/26/24 19:33 Baso % (Auto) 0.7 % 06/26/24 19: Neut # (Auto) 5.70 10^3/uL (1.8-7.7) 06/26/24 19:33 Lymph # (Auto) 3.1 10^3/uL (0.8-4.8) 06/26/24 19:33 [place] # (Auto) 0.9 10^3/uL (0.2-0.9) 06/26/24 19:33 Eos # (Auto) 0.2 10^3/uL (0.0-0.8) 06/26/24 19:33 Baso # (Auto) 0.1 10^3/uL (0.0-0.1) 06/26/24 19:33 Nucleated RBC % (auto) 0 % 06/26/24 19: Nucleated RBCs # 0.0 /100WBC 06/26/24 19:33 PT 12.90 SECONDS (12.1-14.9) 06/26/24 19:33 INR 0.94 (0.8-1.2) 06/26/24 19:33 Specimen Type Arterial 06/26/24 19:40 Sample Site Radial, right 06/26/24 19:40 ABG pH 7.45 (7.35-7.45) 06/26/24 19:40 ABG pCO2 31.7 mmHg (35-45) L 06/26/24 19:40 ABG pO2 101.0 mmHg (80.0-100.0) H 06/26/24 19:40 ABG PO2/FiO2 Ratio 480 06/26/24 19:40 ABG HCO3 22.0 mmol/L (22-26) 06/26/24 19:40 ABG Base Excess -1.2 mmol/L (-2.0-2.0) 06/26/24 19:40 Ramsey Test Pos 06/26/24 19:40 Hematocrit 40.2 % (37-47) 06/26/24 19:40 Hgb O2 Saturation 93.3 % (95-100) L 06/26/24 19:40 Carboxyhemoglobin 5.2 %THgb (0.4-20.1) 06/26/24 19:40 Methemoglobin 0.4 % (0.4-1.5) 06/26/24 19:40 Total Hemoglobin 13.1 g/dL (12-16) 06/26/24 19:40 O2 Delivery Device None 06/26/24 19:40 FiO2 21.0 % 06/26/24 19:40 Optical Effects Line Up Person ID [place] 06/26/24 19:40 Sodium 139 mmol/L (136-145) 06/26/24 19:33 Potassium 4.2 mmol/L (3.5-5.1) 06/26/24 19:33 Chloride 106 mmol/L (98-107) 06/26/24 19:33 Carbon Dioxide 24 mmol/L (22-29) 06/26/24 19:33 Anion Gap 13.2 (5-19) 06/26/24 19:33 BUN 16 mg/dL (6-20) 06/26/24 19:33 Creatinine 0.7 mg/dL (0.5-0.9) 06/26/24 19:33 GFR Calculation 94.7 mL/min (90-130) 06/26/24 19:33 Glucose 100 mg/dL (65-115) 06/26/24 19:33 Calculated Osmolality 289 mOsm/kg (285-295) 06/26/24 19:33 Lactic Acid 0.8 mmol/L (0.5-2.2) 06/26/24 19:33 Calcium 8.2 mg/dL (8.5-10.5) L 06/26/24 19:33 Total Bilirubin 0.2 mg/dL (0.15-1.2) 06/26/24 19:33 AST 6 U/L (0-32) 06/26/24 19:33 ALT 8 U/L (0-33) 06/26/24 19:33 Alkaline Phosphatase 42 U/L (35-105) 06/26/24 19:33 Total Protein 6.0 g/dL (6.6-8.7) L 06/26/24 19:33 Albumin 3.8 g/dL (3.5-5.2) 06/26/24 19:33 Globulin 2.2 g/dL (1.3-4.6) 06/26/24 19:33 HCG, Qual Negative (Negative) 06/26/24 19:51 Urine Color Yellow (Yellow) 06/26/24 19:51 Urine Appearance Clear (CLEAR) 06/26/24 19:51 Urine pH 7.0 (5-7) 06/26/24 19:51 Ur Specific [place] 1.029 (1.005-1.030) 06/26/24 19:51 Urine Protein Negative (Negative) 06/26/24 19:51 Urine Glucose (UA) Negative (Normal) 06/26/24 19:51 Urine Ketones Negative (Negative) 06/26/24 19:51 Urine Blood Negative (Negative) 06/26/24 19:51 Urine Nitrate Negative (Negative) 06/26/24 19:51 Urine Bilirubin Negative (Negative) 06/26/24 19:51 Urine Urobilinogen 1.0 mg/dL (Negative) 06/26/24 19:51 Ur Leukocyte Esterase 1+ (Negative) A 06/26/24 19:51 Urine RBC 0-2 /hpf (0-2) 06/26/24 19:51 Urine WBC 6-10 /hpf (0-5) 06/26/24 19:51 Ur Squamous Epith Cells 0-5 /hpf (0-5) 06/26/24 19:51 Amorphous Sediment Not Reportable 06/26/24 19:51 Urine Bacteria None seen /hpf (NONE) 06/26/24 19:51 Hyaline Casts 0.40 /lpf 06/26/24 19:51 Salicylates < 0.3 mg/dL (3-10) L 06/26/24 19:33 Urine Opiates Screen Negative ng/mL (Negative) 06/26/24 19:51 Acetaminophen 194.1 ug/mL (10-30) H* 06/26/24 21:17 Ur Barbiturates Screen Negative ng/mL (Negative) 06/26/24 19:51 Ur Phencyclidine Scrn Negative ng/mL (Negative) 06/26/24 19:51 Ur Amphetamines Screen Positive ng/mL (Negative) H 10/18/24 19:51 U Benzodiazepines Scrn Negative ng/mL (Negative) 06/26/24 19:51 Urine Cocaine Screen Negative ng/mL (Negative) 06/26/24 19:51 U Marijuana (THC) Screen Negative ng/mL (Negative) 06/26/24 19:51 All radiology interpretation(s) finalized by discharge EKG Data EKG 1: I personally reviewed and interpreted this EKG as follows: Interpretation: Initial EKG reveals ventricular rate of 52 bpm with normal [place] interval, QRS duration, corrected QT interval. Normal axis. Consistent with sinus bradycardia nonspecific T wave changes noted V2 V3 but no acute ischemic changes. Discharge Plan Discharge Patient Disposition: Admitted As Inpatient Clinical Impression: Acetaminophen overdose Qualifiers: Encounter type: initial encounter Injury intent: intentional self-harm Qualified Code(s): T39.1X2A - Poisoning by 4-Aminophenol derivatives, intentional self-harm, initial encounter Depression Qualifiers: Depression Type: major depressive disorder Major depression recurrence: unspecified whether recurrent Active/Remission status: currently active Major depression episode severity: unspecified Qualified Code(s): F32.9 - Major depressive disorder, single episode, unspecified Condition: Stable Coding Level of Care Code ED Filter Changer for Johnnie Condon
[2024-06-26 19:39] LABS: Basophils # 0.1 10^3/uL (0.0-0.1); Basophils % 0.7 %; Eosinophils # 0.2 10^3/uL (0.0-0.8); Eosinophils % 1.5 %; Hematocrit 34.6 % (36-47); Lymphocytes # 3.1 10^3/uL (0.8-4.8); Lymphocytes % 31.3 %; Mean Corpuscular HGB Conc 34.7 g/dL (30-55); Mean Corpuscular Hemoglobin 32.3 pg (27-33); Mean Platelet Volume 10.3 fL (7.4-10.4); Monocytes # 0.9 10^3/uL (0.2-0.9); Monocytes % 9.3 %; Neutrophils % 56.9 %; Nucleated Red Blood Cells % 0 %; Platelet Count 238 10^3/cmm (157-399); Red Blood Count 3.72 10^6/uL (3.85-5.65); Red Cell Distribution Width 12.8 % (12.1-15.1); White Blood Count 10.01 10^3/uL (3.29-11.43)
[2024-06-26] MEDS: ondansetron 2 mg/ML SDV 2 mL 4 MG IVP (19:46)
[2024-06-26] MEDS: lactated ringers 1,000 ML 999 ML IV (19:46)
[2024-06-26 19:52] LABS: INR 0.94 (0.8-1.2)
[2024-06-26 19:52] LABS: ABG PCO2 31.7 mmHg (35-45); ABG PH Result 7.45 (7.35-7.45); Arterial Blood Gas Hematocrit 40.2 % (37-47); Base Excess ABG -1.2 mmol/L (-2.0-2.0); Blood Gas Allen Test Pos; Blood Gas Operator Identificat SAM; Blood Gas Sample Site Radial, right; Blood Gas Sample Type Arterial; Carboxyhemoglobin 5.2 %THgb (0.4-20.1); HGB O2 Sat 93.3 % (95-100); Methemoglobin 0.4 % (0.4-1.5); PO2 FiO2 Ratio Arterial Blood 480; Total Hemoglobin 13.1 g/dL (12-16)
[2024-06-26 19:59] LABS: Bilirubin Urine Negative (Negative); Blood Urine Negative (Negative); Glucose Urine UA Negative (Normal); Ketones Urine Negative (Negative); Leukocyte Esterase Urine 1+ (Negative); Nitrate Urine Negative (Negative); Protein Urine Negative (Negative); Specific Gravity, Urine 1.029 (1.005-1.030); Urine Appearance Clear (CLEAR); Urine Color Yellow (Yellow)
[2024-06-26 20:01] LABS: HCG Qualitative Urine. Negative (Negative)
[2024-06-26 20:04] LABS: Add Urine Microscopic? YES; Bacteria Urine None Seen /hpf; RBC Urine 0-2 /hpf (0-2); Squamous Epithelial Cell Urine 0-5 /hpf (0-5)
[2024-06-26 20:06] LABS: Amphetamines Screen Urine Positive (Negative); Barbiturates Screen Urine Negative (Negative); Benzodiazepines Screen Urine Negative (Negative); Cocaine Screen Urine Negative (Negative); Opiate Screen Urine Negative (Negative); PCP Screen Urine Negative (Negative); THC Screen Urine Negative (Negative)
[2024-06-26 20:11] LABS: Lactic Sepsis W/Reflex 0.8 mmol/L (0.5-2.2)
[2024-06-26 20:12] LABS: Alanine Aminotransferase 8 U/L (0-33); Albumin Level 3.8 g/dL (3.5-5.2); Alkaline Phosphatase 42 U/L (35-105); Anion Gap 13.2 (5-19); Aspartate Amino Transferase 6 U/L (0-32); Blood Urea Nitrogen 16 mg/dL (6-20); Calcium 8.2 mg/dL (8.5-10.5); Carbon Dioxide 24 mmol/L (22-29); Chloride 106 mmol/L (98-107); Globulin 2.2 g/dL (1.3-4.6); Glomerular Filtration Rate 94.7 mL/min (90-130); Glucose 100 mg/dL (65-115); Osmolality Calculated 289 mOsm/kg (285-295); Potassium 4.2 mmol/L (3.5-5.1); Sodium 139 mmol/L (136-145); Total Bilirubin 0.2 mg/dL (0.15-1.2)
[2024-06-26 20:14] LABS: Salicylate < 0.3 mg/dL (3-10)
[2024-06-26 21:41] LABS: Acetaminophen 194.1 ug/mL (10-30)
[2024-06-26] MEDS: acetylcysteine 10,200 MG in dextrose 5% 250 ML 301 MG IV (22:16)
--- NOTE | 2024-06-26 23:00 | PC.NURSE ---
96 Hour Involuntary Hold Patient Rights have been read to the patient and a copy of the same has been given to her. [place] Inspector Noah was present at bedside at the time of presentation of Rights.
--- NOTE | 2024-06-26 23:05 | PC.NURSE ---
Addendum entered by Nayla Mckinnon RN 06/27/24 00:44: Notified Dr. Rehman of need for orders @0044. Addendum entered by Nayla Mckinnon RN 06/26/24 23:13: See paper chart for Q15M safety checks. Addendum entered by Nayla Mckinnon RN 06/26/24 23:11: Dr. Rehman notified of pt arrival to ICU @[id number]. Original Note: Arrival to ICU 8: Pt arrived to ICU 8 @[id number]. Continuos cardiac monitoring continued. 1:1 sitter present. At this time pt is uncooperative in answering admission questions, states she doesn't feel well and does not want to talk.
[2024-06-27] VITALS (38 sets, daily range): BP systolic 100–158; BP diastolic 52–92; PULSE 49–92; RESP 14–22; TEMP 36.8–37.3; O2SAT 94–100; BMI 25.7
--- NOTE | 2024-06-27 02:11 | PM.HP ---
Providers/Chief Complaint Admitting Physician: Linnette Rehman MD Primary Care Provider: KENA Vang Chief Complaint: OD History of Present Illness Pina Almonte is a 34 year old female brought to the emergency room today with intentional acetaminophen overdose at close to 5 PM this evening. Patient states that she was fairly upset today and therefore took 2 fistful's of acetaminophen 500 mg tablets.. She estimates this was at least 25 to 30 pills. Denies any alcohol or other substance ingestion along with the acetaminophen. She complains of vague abdominal discomfort and nausea currently. She is not currently . Acetaminophen level at 192. Denies any recent illness. Denies any nausea vomiting or diarrhea chest pain palpitations. Mental status is normal. GCS 15. Review of Systems General: Reports: 10 or more systems reviewed and unremarkable except in HPI and below Const: Denies: fever(s), chills or body aches Eyes: Denies: change in vision, blurry vision or photophobia ENMT: Reports: hoarseness; Denies: throat pain, enlarged tonsils, odynophagia or nasal congestion Card: Denies: chest pain, palpitations, irregular heart rhythm, edema, swelling of feet/ankles, lightheadedness, pre-syncope, dyspnea on exertion or orthopnea Resp: Denies: dyspnea, productive cough, non-productive cough, wheezing, stridor, pain on inspiration, change in phlegm color, hemoptysis or chest congestion GI: Denies: abdominal pain, nausea, vomiting, hematemesis, coffee ground emesis, dysphagia, heartburn, diarrhea, constipation, GI cramping, change in stool character, hematochezia or melena : Denies: flank pain, difficulty voiding, dysuria, urinary frequency, urinary urgency, urinary hesitancy or hematuria Musc: Denies: neck pain, back pain, extremity pain, joint swelling, joint warmth or deformity Neuro: Denies: headache(s), numbness in extremities, weakness in extremities, sensory changes, difficulty walking, frequent falls, dizziness, vertigo, behavioral changes, Slurred speech present or seizure-like activity Psych: Denies: anxiety, depression, suicidal ideation or homicidal ideation Endo: Denies: polyuria, polydipsia, tired all the time, cold intolerance or hot flashes Kristian/Lymph: Denies: easy bruising or easy bleeding Medications/Allergies Home Medications Medication Instructions Recorded Confirmed Last Taken Type lisdexamfetamine 30 mg capsule 30 mg PO DAILY 07/03/23 07/03/23 Unknown History (Vyvanse) vilazodone 10 mg tablet (Viibryd) 10 mg PO DAILY 30 days #30 tabs 07/03/23 07/03/23 Unknown Rx cetirizine 10 mg capsule (Zyrtec) 10 mg PO DAILY PRN 04/09/24 04/09/24 Unknown History famotidine 20 mg tablet (Pepcid) 20 mg PO DAILY 04/09/24 04/09/24 Unknown History prednisone 20 mg tablet 20 mg PO DAILY 7 days #7 tabs 04/09/24 04/09/24 Unknown Rx permethrin 5 % topical cream 1 applic topical Q14D 2 doses #60 04/10/24 Unknown Rx (Elimite) grams Allergies Allergy/AdvReac Type Severity Reaction Status Date / Time latex Allergy Mild Unknown Verified 04/09/24 15:47 citalopram [From Celexa] Allergy ALGY-Rash Verified 04/09/24 15:47 sertraline [From Zoloft] Allergy ALGY-Rash Verified 04/09/24 15:47 PFSH Acute PFSH: Medical History Psychiatric care Cigarette smoker two packs a day or less Emphysema of lung Depression Anemia Migraine headache Surgical History History of dilatation and curettage Social History Smoking and tobacco/nicotine status: current every day tobacco/nicotine user Alcohol intake: never Substance/Drug Use: never Adopted: No Caregiver/support person: No Lives independently: No Household members: significant other Current occupational status: employed Sexually active: Yes Do you think of yourself as: Lesbian/Donovan/Homosexual Current gender identity: Female Vitals/I&O/Wt Last Vital Signs Temp 98.9 F 06/26/24 23:15 Pulse 65 06/27/24 01:30 Resp 14 06/27/24 01:30 BP 103/57 06/27/24 01:30 Pulse Ox 97 06/27/24 01:30 O2 Del Method Room Air 10/19/24 01:30 06/26/24 06/26/24 06/27/24 14:59 22:59 06:59 Intake Total 1000 / 1000 301 / 1301 Output Total 200 / 200 Balance 800 / 800 301 / 1101 Weight last 48 hrs Weight 74.344 kg Weight 68.039 kg Physical Exam Narrative: General: No acute distress, AO x3 HEENT: PERRLA, pupils bilaterally equal and reactive, pallors not present Chest: Normal vesicular breath sounds, no added sounds, equal good air entry bilaterally CVS: S1-S2 regular, no murmurs, no tachycardia, no gallops, no rubs Abdomen: Soft, nontender, no organomegaly, bowel sounds present Neuro: No focal deficits, no facial deformity, AO x3, power 5/5 in all limbs Data 06/26/24 19:33 06/26/24 19:33 Other Labs: Radiology Impressions Chest X-Ray 06/26/24 19:19 IMPRESSION: No acute cardiopulmonary abnormality. Laboratory Results WBC 10.01 10^3/uL (3.29-11.43) 06/26/24 19:33 RBC 3.72 10^6/uL (3.85-5.65) L 06/26/24 19:33 Hgb 12.00 g/dL (11.27-16.99) 06/26/24 19:33 Hct 34.6 % (36-47) L 06/26/24 19:33 MCV 93.0 fl (85-98) 06/26/24 19:33 MCH 32.3 pg (27-33) 06/26/24 19:33 MCHC 34.7 g/dL (30-55) 06/26/24 19:33 RDW 12.8 % (12.1-15.1) 06/26/24 19:33 Plt Count 238 10^3/cmm (157-399) 06/26/24 19:33 MPV 10.3 fL (7.4-10.4) 06/26/24 19:33 Neut % (Auto) 56.9 % 06/26/24 19:33 Lymph % (Auto) 31.3 % 06/26/24 19:33 Miller % (Auto) 9.3 % 06/26/24 19:33 Eos % (Auto) 1.5 % 06/26/24 19:33 Baso % (Auto) 0.7 % 06/26/24 19:33 Neut # (Auto) 5.70 10^3/uL (1.8-7.7) 06/26/24 19:33 Lymph # (Auto) 3.1 10^3/uL (0.8-4.8) 06/26/24 19:33 Miller # (Auto) 0.9 10^3/uL (0.2-0.9) 06/26/24 19:33 Eos # (Auto) 0.2 10^3/uL (0.0-0.8) 06/26/24 19: Baso # (Auto) 0.1 10^3/uL (0.0-0.1) 06/26/24:33 Nucleated RBC % (auto) 0 % 06/26/24: Nucleated RBCs # 0.0 /100WBC 06/26/24:33 PT 12.90 SECONDS (12.1-14.9) 06/26/24 19:33 INR 0.94 (0.8-1.2) 06/26/24 19:33 Specimen Type Arterial 06/26/24 19:40 Sample Site Radial, right 06/26/24 19:40 ABG pH 7.45 (7.35-7.45) 06/26/24 19:40 ABG pCO2 31.7 mmHg (35-45) L 06/26/24 19:40 ABG pO2 101.0 mmHg (80.0-100.0) H 06/26/24 19:40 ABG PO2/FiO2 Ratio 480 06/26/24 19:40 ABG HCO3 22.0 mmol/L (22-26) 06/26/24 19:40 ABG Base Excess -1.2 mmol/L (-2.0-2.0) 06/26/24 19:40 Ramsey Test Pos 06/26/24 19:40 Hematocrit 40.2 % (37-47) 06/26/24 19:40 Hgb O2 Saturation 93.3 % (95-100) L 06/26/24 19:40 Carboxyhemoglobin 5.2 %THgb (0.4-20.1) 06/26/24 19:40 Methemoglobin 0.4 % (0.4-1.5) 06/26/24 19:40 Total Hemoglobin 13.1 g/dL (12-16) 06/26/24 19:40 O2 Delivery Device None 06/26/24 19:40 FiO2 21.0 % 06/26/24 19:40 [employer] Consultant ID [place] 06/26/24 19:40 Sodium 139 mmol/L (136-145) 06/26/24 19:33 Potassium 4.2 mmol/L (3.5-5.1) 06/26/24 19:33 Chloride 106 mmol/L (98-107) 06/26/24 19:33 Carbon Dioxide 24 mmol/L (22-29) 06/26/24 19:33 Anion Gap 13.2 (5-19) 06/26/24 19:33 BUN 16 mg/dL (6-20) 06/26/24 19:33 Creatinine 0.7 mg/dL (0.5-0.9) 06/26/24 19:33 GFR Calculation 94.7 mL/min (90-130) 06/26/24 19:33 Glucose 100 mg/dL (65-115) 06/26/24 19:33 Calculated Osmolality 289 mOsm/kg (285-295) 06/26/24 19:33 Lactic Acid 0.8 mmol/L (0.5-2.2) 06/26/24 19:33 Calcium 8.2 mg/dL (8.5-10.5) L 06/26/24 19:33 Total Bilirubin 0.2 mg/dL (0.15-1.2) 06/26/24 19:33 AST 6 U/L (0-32) 06/26/24 19:33 ALT 8 U/L (0-33) 06/26/24 19:33 Alkaline Phosphatase 42 U/L (35-105) 06/26/24 19:33 Total Protein 6.0 g/dL (6.6-8.7) L 06/26/24 19:33 Albumin 3.8 g/dL (3.5-5.2) 06/26/24 19:33 Globulin 2.2 g/dL (1.3-4.6) 06/26/24 19:33 HCG, Qual Negative (Negative) 06/26/24 19:51 Urine Color Yellow (Yellow) 06/26/24 19:51 Urine Appearance Clear (CLEAR) 06/26/24 19:51 Urine pH 7.0 (5-7) 06/26/24 19:51 Ur Specific [place] 1.029 (1.005-1.030) 06/26/24 19:51 Urine Protein Negative (Negative) 06/26/24 19:51 Urine Glucose (UA) Negative (Normal) 06/26/24 19:51 Urine Ketones Negative (Negative) 06/26/24 19:51 Urine Blood Negative (Negative) 06/26/24 19:51 Urine Nitrate Negative (Negative) 06/26/24 19:51 Urine Bilirubin Negative (Negative) 06/26/24 19:51 Urine Urobilinogen 1.0 mg/dL (Negative) 06/26/24 19:51 Ur Leukocyte Esterase 1+ (Negative) A 06/26/24 19:51 Urine RBC 0-2 /hpf (0-2) 06/26/24 19:51 Urine WBC 6-10 /hpf (0-5) 06/26/24 19:51 Ur Squamous Epith Cells 0-5 /hpf (0-5) 06/26/24 19:51 Amorphous Sediment Not Reportable 06/26/24 19:51 Urine Bacteria None seen /hpf (NONE) 06/26/24 19:51 Hyaline Casts 0.40 /lpf 06/26/24 19:51 Salicylates < 0.3 mg/dL (3-10) L 06/26/24 19:33 Urine Opiates Screen Negative ng/mL (Negative) 06/26/24 19:51 Acetaminophen 194.1 ug/mL (10-30) H* 06/26/24 21:17 Ur Barbiturates Screen Negative ng/mL (Negative) 06/26/24 19:51 Ur Phencyclidine Scrn Negative ng/mL (Negative) 06/26/24 19:51 Ur Amphetamines Screen Positive ng/mL (Negative) H 06/26/24 19:51 U Benzodiazepines Scrn Negative ng/mL (Negative) 06/26/24 19:51 Urine Cocaine Screen Negative ng/mL (Negative) 06/26/24 19:51 U Marijuana (THC) Screen Negative ng/mL (Negative) 06/26/24 19:51 A&P Assessment and plan (1) Suicide attempt by acetaminophen overdose: Admit to ICU for suicide attempt. One-to-one sitter 96-hour hold placed in the emergency room Suicide precautions. Psychiatry consult (2) Acetaminophen overdose: Treatment has been started with acetylcysteine since serum acetaminophen concentration is above the treatment line on the Revised [facility] nomogram. Serum acetaminophen level at 192. Currently LFTs are normal range. Receiving N-acetylcysteine as 150 mg/kg loading dose (maximum 15 g) over 60 minutes followed by 50 mg/kg (maximum 5 g) infused over 4 hours, then 100 mg/kg (maximum 10 g) infused over the remaining 16 hours. Will stop infusion at the end of 21 hours if INR is <2, AST/ALT are normal or have decreased 25 to 50% from the peak, serum acetaminophen concentration <10 mcg/mL (66 micromol/L), and the patient is clinically well. Recheck CBC CMP lactate acetaminophen level and INR every 12 hours Monitor for signs of allergic reaction while on NAC infusion Qualifiers: Encounter type: initial encounter Injury intent: intentional self-harm Qualified Code(s): T39.1X2A - Poisoning by 4-Aminophenol derivatives, intentional self-harm, initial encounter Plan DVT prophylaxis: Low risk, SCDs only Full code Attestations Medical Necessity Statement*: Greater than 2 midnight stay is anticipated Critical Care Time: The high probability of a clinically significant, sudden or life threatening deterioration of the patient's [GI, toxicology] system(s) required my full and direct attention, intervention and personal management. The critical care time is as shown. This time is in addition to time spent performing any reported procedures but includes the following: [x] Data and vital sign review and interpretation [x] Patient assessment, examination and intervention [x] Documentation [x] Medication orders and management Critical Care Time (min): 55 Coding Level of Care Code Acute Code for Chg Fwd High MDM includes number and complexity of problems actively addressed during encounter, amount and/or complexity of data reviewed/ordered and described risk of complication, morbidity or mortality of management as documented Diagnoses Suicide attempt by acetaminophen overdose T39.1X2A Acetaminophen overdose T39.1X2A Encounter type: initial encounter Injury intent: intentional self-harm
[2024-06-27] MEDS: DEXTROSE 5% IV (02:39)
[2024-06-27] MEDS: ACETYLCYSTEINE IV (02:39)
[2024-06-27 04:43] LABS: Basophils % 0.6 %; Eosinophils # 0.1 10^3/uL (0.0-0.8); Eosinophils % 1.4 %; Hematocrit 34.2 % (36-47); Lymphocytes # 2.5 10^3/uL (0.8-4.8); Lymphocytes % 36.9 %; Mean Corpuscular HGB Conc 34.8 g/dL (30-55); Mean Corpuscular Hemoglobin 32.8 pg (27-33); Mean Corpuscular Volume 94.2 fl (85-98); Mean Platelet Volume 10.9 fL (7.4-10.4); Monocytes # 0.5 10^3/uL (0.2-0.9); Monocytes % 6.9 %; Neutrophils # 3.59 10^3/uL (1.8-7.7); Nucleated Red Blood Cells % 0 %; Platelet Count 212 10^3/cmm (157-399); Red Blood Count 3.63 10^6/uL (3.85-5.65); Red Cell Distribution Width 12.8 % (12.1-15.1); White Blood Count 6.64 10^3/uL (3.29-11.43)
[2024-06-27 04:53] LABS: INR 1.14 (0.8-1.2)
[2024-06-27 04:58] LABS: Lactate (Lactic Acid level) 0.7 mmol/L (0.5-2.2)
[2024-06-27 05:00] LABS: Alanine Aminotransferase 9 U/L (0-33); Albumin Level 3.4 g/dL (3.5-5.2); Alkaline Phosphatase 39 U/L (35-105); Anion Gap 14.5 (5-19); Aspartate Amino Transferase 10 U/L (0-32); Blood Urea Nitrogen 12 mg/dL (6-20); Calcium 7.5 mg/dL (8.5-10.5); Carbon Dioxide 19 mmol/L (22-29); Chloride 104 mmol/L (98-107); Creatinine Clr Calc Pharmacy 136.4831; Glomerular Filtration Rate 113.1 mL/min (90-130); Glucose 150 mg/dL (65-115); Osmolality Calculated 281 mOsm/kg (285-295); Potassium 3.5 mmol/L (3.5-5.1); Sodium 134 mmol/L (136-145); Total Bilirubin 0.3 mg/dL (0.15-1.2); Total Protein 5.4 g/dL (6.6-8.7)
--- NOTE | 2024-06-27 08:26 | PC.NURSE ---
educated on SCD use for prevention of DVT and pt refuses at this time.
[2024-06-27] MEDS: pantoprazole DR 40 mg Tablet PO (09:44)
[2024-06-27 11:30] LABS: Iron 102 ug/dL (37-145); Percent Saturation 46.5 % (20-50); Total Iron Binding Capacity 219 mcg/dl; Unsaturated Iron Binding 117 ug/dL (112-347); Vitamin B12 226 pg/mL (232-1245)
--- NOTE | 2024-06-27 14:57 | P.PN_ITS ---
Subjective 2 Subjective: Admitted overnight. Today morning examination patient laying comfortably in bed. Denies any nausea, vomiting, headache. Able to tolerate oral diet. Has remained hemodynamically stable and afebrile. Denies any abdominal pain. Vitals/I&O/Wt Last Vital Signs Temp 98.4 F 06/27/24 12:00 Pulse 69 06/27/24 14:00 Resp 18 06/27/24 14:00 BP 136/70 06/27/24 14:00 Pulse Ox 96 06/27/24 14:00 O2 Del Method Room Air 06/27/24 14:00 06/26/24 06/27/24 06/27/24 22:59 06:59 14:59 Intake Total 1000 / 1000 301 / 1301 758.5 / 758.5 Output Total 200 / 200 850 / 1050 1300 / 1300 Balance 800 / 800 -549 / 251 -541.5 / -541.5 Weight last 48 hrs Weight 74.5 kg Weight 74.344 kg Weight 68.039 kg Physical Exam 2 Narrative: General: No acute distress, AO x3 HEENT: PERRLA, pupils bilaterally equal and reactive, pallors not present Chest: Normal vesicular breath sounds, no added sounds, equal good air entry bilaterally CVS: S1-S2 regular, no murmurs, no tachycardia, no gallops, no rubs Abdomen: Soft, nontender, no organomegaly, bowel sounds present Neuro: No focal deficits, no facial deformity, AO x3, power 5/5 in all limbs Psych: COMMON NORMALS: cooperative and speech normal ATTITUDE: Yes calm and Yes Guarded attititude/behavior present ACTIVITY/MOTOR BEHAVIOR: Yes appropriate eye contact SPEECH: Yes normal speech MOOD & AFFECT: Yes sad Data 06/27/24 04:05 06/27/24 04:05 A&P Assessment and plan (1) Suicide attempt by acetaminophen overdose: One-to-one sitter 96-hour hold placed in the emergency room Suicide precautions. Psychiatry consult (2) Acetaminophen overdose: Treatment has been started with acetylcysteine since serum acetaminophen concentration is above the treatment line on the Revised [facility] nomogram. Serum acetaminophen level at 192 at presentation. Today morning down to 24. Currently LFTs are normal range. Already received N-acetylcysteine as 150 mg/kg loading dose (maximum 15 g) over 60 minutes, followed by 50 mg/kg (maximum 5 g) infused over 4 hours, Currently receiving maintenance dose 100 mg/kg (maximum 10 g) infused over the remaining 16 hours. Will stop infusion at the end of 21 hours if INR is <2, AST/ALT are normal or have decreased 25 to 50% from the peak, serum acetaminophen concentration <10 mcg/mL (66 micromol/L), and the patient is clinically well. Recheck CBC CMP lactate acetaminophen level and INR every 12 hours Monitor for signs of allergic reaction while on NAC infusion. Medical reconciliation done for hepatotoxic drugs. Protonix daily Zofran as needed Qualifiers: Encounter type: initial encounter Injury intent: intentional self-harm Qualified Code(s): T39.1X2A - Poisoning by 4-Aminophenol derivatives, intentional self-harm, initial encounter Plan Does have mild hyponatremia and metabolic acidosis currently. Most likely in setting of dehydration. Start on normal saline at 75 cc/h. Check B12 level, TSH. Urine drug screen positive for amphetamines. Will send amphetamine confirmation test. DVT prophylaxis: Low risk, SCDs only Full code Attestations 2 Medical Necessity Statement*: Requires further hospitalization for management of suicidal ideation with attempt with Tylenol poisoning as patient is treated for acetaminophen overdose Diagnoses Suicide attempt by acetaminophen overdose T39.1X2A Acetaminophen overdose T39.1X2A Encounter type: initial encounter Injury intent: intentional self-harm
[2024-06-27] MEDS: sodium chloride 0.9% 1,000 ML 75 ML IV (16:06)
[2024-06-27] MEDS: ondansetron 2 mg/ML SDV 2 mL 4 MG IVP (17:09)
[2024-06-27 18:30] LABS: Basophils % 0.4 %; Eosinophils # 0.1 10^3/uL (0.0-0.8); Eosinophils % 1.2 %; Hematocrit 35.8 % (36-47); Lymphocytes # 2.5 10^3/uL (0.8-4.8); Lymphocytes % 36.5 %; Mean Corpuscular HGB Conc 34.4 g/dL (30-55); Mean Corpuscular Hemoglobin 32.3 pg (27-33); Mean Platelet Volume 10.3 fL (7.4-10.4); Monocytes # 0.6 10^3/uL (0.2-0.9); Monocytes % 8.2 %; Neutrophils # 3.65 10^3/uL (1.8-7.7); Neutrophils % 53.4 %; Nucleated Red Blood Cells % 0 %; Platelet Count 224 10^3/cmm (157-399); Red Blood Count 3.81 10^6/uL (3.85-5.65); Red Cell Distribution Width 12.8 % (12.1-15.1); White Blood Count 6.84 10^3/uL (3.29-11.43)
[2024-06-27 18:43] LABS: INR 1.07 (0.8-1.2)
[2024-06-27 18:47] LABS: Lactate (Lactic Acid level) 1.3 mmol/L (0.5-2.2)
[2024-06-27] MEDS: nicotine 21 mg Patch 1 PATCH TRANSDERMA (20:28)
[2024-06-27 21:42] LABS: Alanine Aminotransferase 9 U/L (0-33); Albumin Level 3.4 g/dL (3.5-5.2); Alkaline Phosphatase 38 U/L (35-105); Blood Urea Nitrogen 8 mg/dL (6-20); Calcium 7.9 mg/dL (8.5-10.5); Carbon Dioxide 19 mmol/L (22-29); Chloride 110 mmol/L (98-107); Creatinine Clr Calc Pharmacy 163.9329; Globulin 2.1 g/dL (1.3-4.6); Glomerular Filtration Rate 139.6 mL/min (90-130); Glucose 138 mg/dL (65-115); Osmolality Calculated 285 mOsm/kg (285-295); Sodium 137 mmol/L (136-145); Total Bilirubin 0.2 mg/dL (0.15-1.2); Total Protein 5.5 g/dL (6.6-8.7)
[2024-06-27 21:44] LABS: Acetaminophen < 5.0 ug/mL (10-30)
[2024-06-27 21:48] LABS: Anion Gap 12.5 (5-19); Aspartate Amino Transferase 11 U/L (0-32); Potassium 4.5 mmol/L (3.5-5.1)
[2024-06-27] MEDS: LORazepam 2 mg/mL INJ 1 mL 1 MG IVP (22:08)
[2024-06-28] VITALS (30 sets, daily range): BP systolic 100–129; BP diastolic 63–80; PULSE 62–95; RESP 15–25; TEMP 36.6–37.2; O2SAT 91–100
[2024-06-28] MEDS: sodium chloride 0.9% 1,000 ML 75 ML IV (04:51)
[2024-06-28 05:16] LABS: Basophils % 0.6 %; Eosinophils # 0.1 10^3/uL (0.0-0.8); Eosinophils % 1.8 %; Hematocrit 34.8 % (36-47); Lymphocytes # 2.3 10^3/uL (0.8-4.8); Mean Corpuscular HGB Conc 33.9 g/dL (30-55); Mean Corpuscular Hemoglobin 32.3 pg (27-33); Mean Corpuscular Volume 95.3 fl (85-98); Mean Platelet Volume 10.4 fL (7.4-10.4); Monocytes # 0.5 10^3/uL (0.2-0.9); Monocytes % 7.5 %; Neutrophils # 3.79 10^3/uL (1.8-7.7); Nucleated Red Blood Cells % 0 %; Platelet Count 227 10^3/cmm (157-399); Red Blood Count 3.65 10^6/uL (3.85-5.65); Red Cell Distribution Width 12.8 % (12.1-15.1); White Blood Count 6.77 10^3/uL (3.29-11.43)
[2024-06-28 05:30] LABS: INR 1.02 (0.8-1.2)
[2024-06-28 05:36] LABS: Lactate (Lactic Acid level) 0.7 mmol/L (0.5-2.2)
[2024-06-28 05:46] LABS: Alanine Aminotransferase 8 U/L (0-33); Albumin Level 3.2 g/dL (3.5-5.2); Alkaline Phosphatase 37 U/L (35-105); Anion Gap 10.3 (5-19); Aspartate Amino Transferase 8 U/L (0-32); Blood Urea Nitrogen 10 mg/dL (6-20); Calcium 7.9 mg/dL (8.5-10.5); Carbon Dioxide 23 mmol/L (22-29); Chloride 109 mmol/L (98-107); Creatinine Clr Calc Pharmacy 136.4831; Globulin 2.1 g/dL (1.3-4.6); Glomerular Filtration Rate 113.1 mL/min (90-130); Glucose 113 mg/dL (65-115); Magnesium 1.7 mg/dL (1.7-2.3); Osmolality Calculated 286 mOsm/kg (285-295); Potassium 4.3 mmol/L (3.5-5.1); Sodium 138 mmol/L (136-145); Total Bilirubin 0.2 mg/dL (0.15-1.2); Total Protein 5.3 g/dL (6.6-8.7)
[2024-06-28 05:52] LABS: Folate Level 10.1 ng/mL (4.8-37.3)
[2024-06-28 05:55] LABS: Acetaminophen < 5.0 ug/mL (10-30)
[2024-06-28] MEDS: nicotine 21 mg Patch 1 PATCH TRANSDERMA (08:40)
[2024-06-28] MEDS: pantoprazole DR 40 mg Tablet PO (08:41)
--- NOTE | 2024-06-28 14:37 | PM.PN ---
Subjective Subjective: No events overnight. Patient has remained hemodynamic stable and afebrile. No vomiting. Complaining of mild nausea. Tolerating diet otherwise. Sitter at bedside. Vitals/I&O/Wt Last Vital Signs Temp 98.7 F 06/28/24 13:30 Pulse 80 06/28/24 14:12 Resp 18 06/28/24 14:00 BP 129/63 06/28/24 14:00 Pulse Ox 100 06/28/24 14:00 O2 Del Method Room Air 06/28/24 14:00 06/27/24 06/28/24 06/28/24 22:59 06:59 14:59 Intake Total 480 / 1238.5 2473.25 / 3711.75 1140 / 1140 Output Total 1300 / 2600 1150 / 3750 Balance -820 / -1361.5 1323.25 / -38.25 1140 / 1140 Weight last 48 hrs Weight 74.344 kg Weight 74.5 kg Weight 74.344 kg Weight 68.039 kg Physical Exam Narrative: General: No acute distress, AO x3 HEENT: PERRLA, pupils bilaterally equal and reactive, pallors not present Chest: Normal vesicular breath sounds, no added sounds, equal good air entry bilaterally CVS: S1-S2 regular, no murmurs, no tachycardia, no gallops, no rubs Abdomen: Soft, nontender, no organomegaly, bowel sounds present Neuro: No focal deficits, no facial deformity, AO x3, power 5/5 in all limbs Psych: COMMON NORMALS: cooperative and speech normal ATTITUDE: Yes calm and Yes Guarded attititude/behavior present ACTIVITY/MOTOR BEHAVIOR: Yes appropriate eye contact SPEECH: Yes normal speech MOOD & AFFECT: Yes sad Data 06/28/24 04:51 06/28/24 04:51 A&P Assessment and plan (1) Suicide attempt by acetaminophen overdose: One-to-one sitter 96-hour hold placed in the emergency room Suicide precautions. Psychiatry consult (2) Acetaminophen overdose: Treatment has been started with acetylcysteine since serum acetaminophen concentration is above the treatment line [facility]. Serum acetaminophen level at 192 at presentation. Today morning down to 24. Currently LFTs are normal range. Already received N-acetylcysteine as 150 mg/kg loading dose (maximum 15 g) over 60 minutes, followed by 50 mg/kg (maximum 5 g) infused over 4 hours, Currently receiving maintenance dose 100 mg/kg (maximum 10 g) infused over the remaining 16 hours. Will stop infusion at the end of 21 hours if INR is <2, AST/ALT are normal or have decreased 25 to 50% from the peak, serum acetaminophen concentration <10 mcg/mL (66 micromol/L), and the patient is clinically well. Recheck CBC CMP lactate acetaminophen level and INR every 12 hours Monitor for signs of allergic reaction while on NAC infusion. Medical reconciliation done for hepatotoxic drugs. Protonix daily Zofran as needed Qualifiers: Encounter type: initial encounter Injury intent: intentional self-harm Qualified Code(s): T39.1X2A - Poisoning by 4-Aminophenol derivatives, intentional self-harm, initial encounter Plan Does have mild hyponatremia and metabolic acidosis currently. Most likely in setting of dehydration. Start on normal saline at 75 cc/h. Check B12 level, TSH. Urine drug screen positive for amphetamines. Will send amphetamine confirmation test. DVT prophylaxis: Low risk, SCDs only Full code Plan for the day: Patient's LFT has remained stable. Tylenol levels negative. Patient has finished the treatment with NAC. Monitor CMP daily. Continue with medical reconciliation for hepatotoxic drugs. Nicotine patch. Start on vitamin B12 supplementation. Patient is medically stable to be transitioned over to Neuropsych Unit. Attestations Medical Necessity Statement*: Requires further hospitalization for management of suicidal ideation as patient remains under 96-hour hold for Tylenol overdose. Diagnoses Suicide attempt by acetaminophen overdose T39.1X2A Acetaminophen overdose T39.1X2A Encounter type: initial encounter Injury intent: intentional self-harm
[2024-06-28] MEDS: cyanocobalamin 1,000 mcg Tablet 1000 MCG PO (14:50)
--- NOTE | 2024-06-28 19:35 | PC.NURSE ---
Shift summary: Pt denied felling suicidal this shift. Pt expressed concern about contacting her job. Informed that she would be able to call in the am. She also expressed concern about being able to see her children later this week. No tearful episodes or angry outbursts noted. She mostly lied in bed and watched TV or napped. VSS. Urine output more than adequate, she was up at least every 2 hours to BS. She ate all of her meals and requested more snacks throughout the shift. She denied any pain.
[2024-06-28] MEDS: ondansetron 2 mg/ML SDV 2 mL 4 MG IVP (20:38)
[2024-06-28] MEDS: LORazepam 2 mg/mL INJ 1 mL 1 MG IVP (20:38)
[2024-06-29] VITALS (7 sets, daily range): BP systolic 101–131; BP diastolic 58–85; PULSE 61–77; RESP 16–18; TEMP 36.7–37.2; O2SAT 95–98; BMI 25.7
[2024-06-29 05:44] LABS: Alanine Aminotransferase 7 U/L (0-33); Albumin Level 3.4 g/dL (3.5-5.2); Alkaline Phosphatase 39 U/L (35-105); Aspartate Amino Transferase 8 U/L (0-32); Blood Urea Nitrogen 13 mg/dL (6-20); Carbon Dioxide 23 mmol/L (22-29); Chloride 105 mmol/L (98-107); Creatinine Clr Calc Pharmacy 136.4831; Globulin 2.3 g/dL (1.3-4.6); Glomerular Filtration Rate 113.1 mL/min (90-130); Glucose 103 mg/dL (65-115); Osmolality Calculated 280 mOsm/kg (285-295); Sodium 135 mmol/L (136-145); Total Bilirubin 0.2 mg/dL (0.15-1.2); Total Protein 5.7 g/dL (6.6-8.7)
[2024-06-29 05:45] LABS: Magnesium 1.8 mg/dL (1.7-2.3)
[2024-06-29] MEDS: ARIPiprazole 10 mg Tablet 5 MG PO (08:33)
[2024-06-29] MEDS: nicotine 21 mg Patch 1 PATCH TRANSDERMA (08:33)
[2024-06-29] MEDS: pantoprazole DR 40 mg Tablet PO (08:33)
[2024-06-29] MEDS: cyanocobalamin 1,000 mcg Tablet 1000 MCG PO (08:33)
--- NOTE | 2024-06-29 10:46 | PC.CHAP ---
Pastoral Care Encounter/Spiritual Assessment Type of Contact [] Declined small piece cutter visit [] Patient/Family/Request visit [] Outpatient visit [] Follow-up visit [] Physician referral [] Code/Alert [x] Routine visit [] Staff referral [] Actively dying [] Patient sleeping [] Family support [] [] Out of room [] Palliative care [] [] Receiving care in room [] Pre-surgical visit [] Trauma [] Long length of stay [] ICU visit [] Other: Relational/Emotional Strength [] Patient feels connected with others/family/visitors/staff [] Distress [] Loneliness/isolation [] Abandonment Spirituality of Patient [x] Person of Elayne [] Attends Buddhism of their Elayen [x] Believes in Prayer [] Reads Bible or Synagogue materials [] There are Spiritual issues to be addressed Cigarette Package Examiner Interventions [x] Prayer [x] Active listening [] Non-anxious presence [] Spiritual/emotional support [] Crisis/trauma care [] Spiritual counseling [] Bereavement support [] Provided bereavement packet [x] Provided Bible/devotional materials [] Provided toy/stuffed animal, coloring book to patient or family member [] Provided Communion [] Anointing/[place] [] Salvation [x] Completed spiritual assessment [] Other: Impact on Illness or Injury [] Angry [] Fearful [] Anxious [] Often cries [] Exhaustion [] Unable to work [] Unable to attend mandaeism [] Unable to walk/stand [] Unable to read [] Unable to drive [] Unable to eat/drink [] Unable to sleep [] Unable to be with family [] Patient intubated [] Other: Summary Time spent with patient 5 min
--- NOTE | 2024-06-29 14:46 | P.NPUHP_ITS ---
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 symptoms. #1.? Engage patient in individual milieu and group therapy. #2?? Recommend sober living treatment at the highest level of care to which the patient is willing to commit #3??? Restart outpatient medications #4?? TO-15 minute checks? #5?? Will attempt to gather collateral information Involuntary Hold Information 2 96 Hour Hold: 96 Hour Involuntary Admission: Yes 96 Hour Hold Ending Date: 07/02/24 96 Hour Hold Ending Time: 22:17 Attestations NPU 2 Medical Necessity Statement*: Inpatient hospitalization is medically necessary and deemed to ?be ?the clinically appropriate intervention ?at this time.? We will monitor/initiate medications and make changes as indicated.? The patient will be in the hospital for over 2 midnights.? The patient?s likely length of stay 4-7 days. Coding Level of Care Code Acute Code for Chg Fwd Diagnoses Suicide attempt by acetaminophen overdose T39.1X2A Dysthymic disorder F34.1 Attention deficit disorder (ADD) in adult F98.8 Complex posttraumatic stress disorder F43.10 Generalized anxiety disorder F41.1 Panic attacks F41.0
--- NOTE | 2024-06-29 15:14 | P.PN_ITS ---
Subjective 2 Subjective: Patient was seen this morning, denies any fevers, no chills, no cough, no abdominal pain, denies any suicidal ideation, denies any homicidal ideation Vitals/I&O/Wt Last Vital Signs Temp 98.9 F 06/29/24 12:19 Pulse 77 06/29/24 12:19 Resp 16 06/29/24 12:19 BP 120/76 06/29/24 12:19 Pulse Ox 96 06/29/24 12:19 O2 Del Method Room Air 06/29/24 12:19 06/29/24 06/29/24 06/29/24 06:59 14:59 22:59 Intake Total 240 / 240 Balance 240 / 240 Weight last 48 hrs Weight 74.344 kg Weight 74.344 kg Physical Exam 2 Const: COMMON NORMALS: no acute distress and patient oriented x3 Resp: COMMON NORMALS: normal respiratory effort, No retractions, No use of accessory muscles and clear to auscultation bilaterally AUSCULTATION: clear to auscultation bilaterally Cardio: COMMON NORMALS: regular rate, regular rhythm, S1 normal heart sound present and S2 normal heart sound present RATE: regular rate RHYTHM: r egular rhythm HEART SOUNDS: S1 normal heart sound present and S2 normal heart sound present GI: COMMON NORMALS: Normal to inspection, nondistended, normoactive bowel sounds present and non-tender Extremity: COMMON NORMALS: no pedal edema Neuro: COMMON NORMALS: patient oriented x3 Psych: COMMON NORMALS: mental status grossly normal Data 06/28/24 04:51 06/29/24 04:31 A&P Assessment and plan (1) Suicide attempt by acetaminophen overdose: One-to-one sitter 96-hour hold placed in the emergency room Suicide precautions. Psychiatry consult Will move to neuropsychiatric unit today (2) Acetaminophen overdose: - Status post N-acetylcysteine -Last acetaminophen level less than 5 -LFTs within normal range Qualifiers: Encounter type: initial encounter Injury intent: intentional self-harm Qualified Code(s): T39.1X2A - Poisoning by 4-Aminophenol derivatives, intentional self-harm, initial encounter Plan B12 deficiency, replace p.o. Urine drug screen positive for amphetamines. Will send amphetamine confirmation test. DVT prophylaxis: Low risk, SCDs only Full code Plan for the day: Patient is medically stable to be transitioned over to Neuropsych Unit. Attestations 2 Medical Necessity Statement*: Patient requires hospitalization for suicide attempt by acetaminophen overdose requiring inpatient psychiatric monitoring and intervention Diagnoses Suicide attempt by acetaminophen overdose T39.1X2A Acetaminophen overdose T39.1X2A Encounter type: initial encounter Injury intent: intentional self-harm
[2024-06-29] MEDS: ondansetron 4 MG Tablet PO (15:55)
[2024-06-29] MEDS: hyDROXYzine 25 mg Capsule 50 MG PO (18:38)
--- NOTE | 2024-06-29 19:26 | PC.NURSE ---
Admission This nurse received report from Kylee on Med-Surg. Patient escorted by security because she is on a 96-hour hold. Patient was calm on admission, tearful at times. Patient stated that she had overdosed on Tylenol as a way to get attention from her . Patient says that she self-sabotages her self and has a lot of self-doubt. Patient has an appt at [facility] in July and has therapy at the [facility]. Patient appears receptive to help. Patient endorses past methamphetamine use, tobacco use, marijuana use, and occasional alcohol use. This nurse answered all questions. Patient oriented to the unit. Patient endorses anxiety. This nurse administered vistaril 50mg PO.
[2024-06-29] MEDS: trazodone 50 mg Tablet PO ×2 (20:16→23:28)
[2024-06-30 06:00] VITALS: BP 101/64; PULSE 68; RESP 16; TEMP 36.7; O2SAT 95
[2024-06-30] MEDS: cyanocobalamin 1,000 mcg Tablet 1000 MCG PO (08:25)
[2024-06-30] MEDS: ARIPiprazole 10 mg Tablet 5 MG PO (08:25)
[2024-06-30 09:08] LABS: Alanine Aminotransferase 9 U/L (0-33); Albumin Level 3.7 g/dL (3.5-5.2); Alkaline Phosphatase 38 U/L (35-105); Anion Gap 12.9 (5-19); Aspartate Amino Transferase 10 U/L (0-32); Blood Urea Nitrogen 16 mg/dL (6-20); Calcium 8.1 mg/dL (8.5-10.5); Carbon Dioxide 24 mmol/L (22-29); Chloride 104 mmol/L (98-107); Creatinine Clr Calc Pharmacy 136.4831; Globulin 2.3 g/dL (1.3-4.6); Glomerular Filtration Rate 113.1 mL/min (90-130); Glucose 94 mg/dL (65-115); Osmolality Calculated 285 mOsm/kg (285-295); Potassium 3.9 mmol/L (3.5-5.1); Sodium 137 mmol/L (136-145); Total Bilirubin 0.3 mg/dL (0.15-1.2)
[2024-06-30 09:09] LABS: Magnesium 1.9 mg/dL (1.7-2.3)
[2024-06-30] MEDS: nicotine 21 mg Patch 1 PATCH TRANSDERMA (12:27)
[2024-06-30 14:00] VITALS: BP 134/79; PULSE 86; RESP 16; TEMP 37; O2SAT 96
[2024-06-30] MEDS: OLANZapine 5 mg ODT PO (15:29)
--- NOTE | 2024-06-30 16:24 | P.NPUPN_ITS ---
Subjective NPU 2 Subjective: 34-year-old female admitted after an ove rdose on Tylenol requiring ICU stabilization. She had reported that she wished to return home. She had stated that she was concerned about losing her job. She had reported previous trial of Wellbutrin but stated that she needed something to help with both mood fluctuations as well as her depression. She had reported that she had intense mood swings and continue to report chronic feelings of abandonment and hopelessness. Mental Status Exam 2 MSE Comments: Patient is a casually dressed thin white female with poor dentition who appeared her stated age. She was alert and oriented to person place time and situation. Her gait appeared within normal limits. Her hygiene was poor. There was no evidence of any abnormal involuntary motor movements tics or tremors appreciated. There was evidence of prominent psychomotor retardation. Her mood was described as okay. Her affect was labile. Her thought process was linear logical and goal-directed. Her thought content showed evidence of suicidal ideation with acknowledgment that she had overdosed with desire to harm herself on Tylenol. She denied any homicidal ideation. She did not appear to be responding to internal stimuli. There was no clear evidence of delusional thinking. Her attention span appeared fair. Her recent and remote memory were grossly intact. Her insight is impaired. Her judgment is poor. Her impulse control appeared poor. Vitals/I&O/Wt Last Vital Signs Temp 98.1 F 06/30/24 06:00 Pulse 68 06/30/24 06:00 Resp 16 06/30/24 06:00 BP 101/64 06/30/24 06:00 Pulse Ox 95 06/30/24 06:00 O2 Del Method Room Air 06/30/24 06:00 Weight last 48 hrs Weight 74.344 kg Weight 74.344 kg Data NPU 06/28/24 04:51 06/30/24 08:11 A&P Assessment and plan (1) Suicide attempt by acetaminophen overdose: (2) Dysthymic disorder: (3) Attention deficit disorder (ADD) in adult: (4) Complex posttraumatic stress disorder: (5) Generalized anxiety disorder: (6) Panic attacks: Plan 34-year-old female with history of trauma admitted after an overdose of Tylenol with suicidal intent with a history of dysthymic mood and some questionable hypomanic symptoms. #1.? Engage patient in individual milieu and group therapy. #2?? Recommend sober living treatment at the highest level of care to which the patient is willing to commit #3??? Increase abilify to 10mg daily and add wellbutrin xl 150mg in am. #4?? TO-15 minute checks? #5?? Will attempt to gather collateral information Involuntary Hold Information 2 96 Hour Hold: 96 Hour Involuntary Admission: Yes 96 Hour Hold Ending Date: 07/02/24 96 Hour Hold Ending Time: 22:17 Attestations NPU 2 Medical Necessity Statement*: Inpatient hospitalization is medically necessary and deemed to ?be ?the clinically appropriate intervention ?at this time.? We will monitor/initiate medications and make changes as indicated.? The patient?s likely length of stay 4-7 days. Coding Level of Care Code Acute Code for Chg Fwd Diagnoses Suicide attempt by acetaminophen overdose T39.1X2A Dysthymic disorder F34.1 Attention deficit disorder (ADD) in adult F98.8 Complex posttraumatic stress disorder F43.10 Generalized anxiety disorder F41.1 Panic attacks F41.0
[2024-06-30] MEDS: doxepin 10 mg Capsule 20 MG PO (19:53)
[2024-06-30 20:06] VITALS: BP 116/78; PULSE 74; RESP 18; TEMP 36.7; O2SAT 100
[2024-07-01 06:00] VITALS: BP 104/65; PULSE 78; RESP 16; TEMP 36.6; O2SAT 97
[2024-07-01] MEDS: acetaminophen 325 mg Tablet 650 MG PO (07:58)
[2024-07-01] MEDS: bisacodyl 5 mg Tablet 10 MG PO (08:05)
[2024-07-01] MEDS: nicotine 21 mg Patch 1 PATCH TRANSDERMA (08:06)
[2024-07-01] MEDS: cyanocobalamin 1,000 mcg Tablet 1000 MCG PO (08:06)
[2024-07-01] MEDS: ARIPiprazole 10 mg Tablet PO (08:06)
[2024-07-01 09:01] LABS: Alanine Aminotransferase 9 U/L (0-33); Albumin Level 4.2 g/dL (3.5-5.2); Alkaline Phosphatase 47 U/L (35-105); Anion Gap 15.1 (5-19); Aspartate Amino Transferase 12 U/L (0-32); Blood Urea Nitrogen 16 mg/dL (6-20); Carbon Dioxide 24 mmol/L (22-29); Chloride 101 mmol/L (98-107); Creatinine Clr Calc Pharmacy 136.4831; Globulin 2.6 g/dL (1.3-4.6); Glomerular Filtration Rate 113.1 mL/min (90-130); Glucose 154 mg/dL (65-115); Osmolality Calculated 286 mOsm/kg (285-295); Potassium 4.1 mmol/L (3.5-5.1); Sodium 136 mmol/L (136-145); Total Bilirubin 0.4 mg/dL (0.15-1.2); Total Protein 6.8 g/dL (6.6-8.7)
[2024-07-01 13:55] VITALS: BP 102/74; PULSE 89; RESP 20; TEMP 36.8; O2SAT 100
[2024-07-01] MEDS: OLANZapine 5 mg ODT PO (15:15)
--- NOTE | 2024-07-01 18:01 | P.NPUPN_ITS ---
Subjective NPU 2 Subjective: 34-year-old female admitted after an ove rdose on Tylenol requiring ICU stabilization. The patient had reported no suicidal thoughts at this time. She had appeared less tearful and reported her moods were more steady. She had reported that she was motivated to return to her job. She had reported having problems with managing mood swings. She had been less isolative on the milieu. She had reported having improved motivation to stay on medication and had reported desire to resume Wellbutrin along with her Abilify. Mental Status Exam 2 MSE Comments: Patient is a casually dressed thin white female with poor dentition who appeared her stated age. She was alert and oriented to person place time and situation. Her gait appeared within normal limits. Her hygiene was improved. There was no evidence of any abnormal involuntary motor movements tics or tremors appreciated. There was less psychomotor retardation appreciated. Her mood was described as better. Her affect was less tearful but still slightly restricted. Her thought process was linear, logical and goal-directed. Her thought content showed no evidence of suicidal ideation today. She denied any homicidal ideation. She did not appear to be responding to internal stimuli. There was no clear evidence of delusional thinking. Her attention span appeared fair. Her recent and remote memory were grossly intact. Her insight is improving. Her judgment is improving. Her impulse control appeared poor. Vitals/I&O/Wt Last Vital Signs Temp 98.2 F 07/01/24 13:55 Pulse 89 07/01/24 13:55 Resp 20 H 07/01/24 13:55 BP 102/74 07/01/24 13:55 Pulse Ox 100 07/01/24 13:55 O2 Del Method Room Air 07/01/24 13:55 Data NPU 06/28/24 04:51 07/01/24 08:02 A&P Assessment and plan (1) Suicide attempt by acetaminophen overdose: (2) Dysthymic disorder: (3) Attention deficit disorder (ADD) in adult: (4) Complex posttraumatic stress disorder: (5) Generalized anxiety disorder: (6) Panic attacks: Plan 34-year-old female with history of trauma admitted after an overdose of Tylenol with suicidal intent with a history of dysthymic mood and some questionable hypomanic symptoms. #1.? Engage patient in individual milieu and group therapy. #2?? Recommend sober living treatment at the highest level of care to which the patient is willing to commit #3??? continue abilify to 10mg daily and wellbutrin xl 150mg in am. #4?? TO-15 minute checks? Involuntary Hold Information 2 96 Hour Hold: 96 Hour Involuntary Admission: Yes 96 Hour Hold Ending Date: 07/02/24 96 Hour Hold Ending Time: 22:17 Attestations NPU 2 Medical Necessity Statement*: Inpatient hospitalization is medically necessary and deemed to ?be ?the clinically appropriate intervention ?at this time.? We will monitor/initiate medications and make changes as indicated.? The patient?s likely length of stay 2-3 days. Coding Level of Care Code Acute Code for Chg Fwd Diagnoses Suicide attempt by acetaminophen overdose T39.1X2A Dysthymic disorder F34.1 Attention deficit disorder (ADD) in adult F98.8 Complex posttraumatic stress disorder F43.10 Generalized anxiety disorder F41.1 Panic attacks F41.0
[2024-07-01] MEDS: doxepin 10 mg Capsule 20 MG PO (19:14)
[2024-07-01] MEDS: hyDROXYzine 25 mg Capsule 50 MG PO (19:14)
[2024-07-01] MEDS: trazodone 50 mg Tablet PO (19:14)
[2024-07-01 19:59] VITALS: BP 112/69; PULSE 65; RESP 18; TEMP 36.7; O2SAT 94
[2024-07-02 06:00] VITALS: BP 113/72; PULSE 73; RESP 16; O2SAT 97
[2024-07-02] MEDS: cyanocobalamin 1,000 mcg Tablet 1000 MCG PO (08:25)
[2024-07-02] MEDS: ARIPiprazole 10 mg Tablet PO (08:25)
[2024-07-02] MEDS: buPROPion XL (24 HR) 150 mg Tablet PO (08:25)
[2024-07-02] MEDS: nicotine 14 mg Patch 1 PATCH TRANSDERMA (08:37)
[2024-07-02 08:59] LABS: Amphetamine 1100 ng/mL; Methamphetamine negative; Methylenedioxyamphetamine negative; Methylenedioxyethylamphetamine negative; Methylenedioxymethamphetamine negative
[2024-07-02] MEDS: hyDROXYzine 25 mg Capsule 50 MG PO (11:22)
[2024-07-02 12:22] VITALS: BP 113/72; PULSE 73; RESP 16; O2SAT 97
[2024-07-02] MEDS: OLANZapine 5 mg ODT PO (12:44)
== END 2024-07-02 13:52 | disposition home or self-care (01) | DRG 918 ==
LOC: ER 21:05 → ICU 22:33 → MEDSURG 06-28 22:27 → NP 06-29 17:49
PROVIDERS: Student in an Organized Health Care Education/Training Program; Admitting Provider Student in an Organized Health Care Education/Training Program; Emergency Provider Emergency Medicine; PCP Registered Nurse; Visit Provider Family Medicine
DX: T39.1X2A Poisoning by 4-Aminophenol derivatives, intentional self-harm, initial encounter (principal); F33.2 Major depressive disorder, recurrent severe without psychotic features; E87.1 Hypo-osmolality and hyponatremia; E87.20 Acidosis, unspecified; F17.210 Nicotine dependence, cigarettes, uncomplicated; J43.9 Emphysema, unspecified; G43.909 Migraine, unspecified, not intractable, without status migrainosus; E86.0 Dehydration; F15.90 Other stimulant use, unspecified, uncomplicated; F43.12 Post-traumatic stress disorder, chronic; F10.90 Alcohol use, unspecified, uncomplicated; F34.1 Dysthymic disorder; F98.8 Other specified behavioral and emotional disorders with onset usually occurring in childhood and adolescence; F41.0 Panic disorder [episodic paroxysmal anxiety]; E53.8 Deficiency of other specified B group vitamins
CPT/HCPCS: 36415; 36600; 71045; 80053; 80306; 80307; 80324; 80359; 81001; 81025; 82607; 82746; 82805; 83540; 83550; 83605; 83735; 84443; 85025; 85610; 93005; 94664; 96365; 96374; 96375; 96376; 97150; 97165; 99285; J0132; J2060; J2405; J7030; J7060; J7070; J7120; Q0162